=== PATIENT | female | born 1990 | race African-American/Black ===

== ENCOUNTER 2016-12-06 04:51 | Emergency (ER) | payer OTHER ==
[2016-12-06 05:41] LABS: BASO % 0.6 % (0.0-1.0); EOS # 0.2 K/mm3 (0.0-0.50); EOS % 2.2 % (0.0-3.0); LARGE UNSTAINED CELL # 0.2 K/mm3 (0.0-0.4); LARGE UNSTAINED CELL % 2.1 % (0.0-4.0); LYMPH # 2.2 K/mm3 (1.5-6.5); MEAN CORPUSCULAR HEMOGLOBIN 28.6 pg (27.0-33.0); MEAN CORPUSCULAR HGB CONC 33.5 g/dl (32.0-36.5); MEAN CORPUSCULAR VOLUME 85.5 fl (80.0-96.0); MONO # 0.3 K/mm3 (0.0-0.8); MONO % 4.1 % (0.0-5.0); NEUTROPHILS # 5.4 K/mm3 (1.8-7.7); PLATELET COUNT, AUTOMATED 285 k/mm3 (150-450); RED CELL DISTRIBUTION WIDTH 12.6 % (11.5-14.5); WHITE BLOOD COUNT 8.3 K/mm3 (4.0-10.0)
[2016-12-06 05:58] LABS: CONTROL LINE HCG INT CTR LINE PRESENT
[2016-12-06 06:09] LABS: ALBUMIN/GLOBULIN RATIO 1.11 (1.00-1.93); ALKALINE PHOSPHATASE 56 U/L (45-117); ALT/SGPT 19 U/L (12-78); ANION GAP 9 MEQ/L (8-16); AST/SGOT 16 U/L (15-37); BILIRUBIN,DIRECT < 0.1 MG/DL (0.0-0.2); BILIRUBIN,TOTAL 0.2 MG/DL (0.2-1.0); BLOOD UREA NITROGEN 9 MG/DL (7-18); CALCIUM LEVEL 8.8 MG/DL (8.5-10.1); CARBON DIOXIDE LEVEL 22 MEQ/L (21-32); CHLORIDE LEVEL 107 MEQ/L (98-107); CREATININE FOR GFR 0.73 MG/DL (0.55-1.02); GLOMERULAR FILTRATION RATE > 60.0 (>60); GLUCOSE, FASTING 89 MG/DL (70-105); POTASSIUM SERUM 3.8 MEQ/L (3.5-5.1); SODIUM LEVEL 138 MEQ/L (136-145); TOTAL PROTEIN 7.6 GM/DL (6.4-8.2)
[2016-12-06] MEDS ORDERED: MORPHINE 2 MG/ML 1ML SYRINGE As Ordered ONE (06:29)
[2016-12-06] MEDS ORDERED: ONDANSETRON 4MG/2ML VIAL (J2405) As Ordered ONE (06:29)
[2016-12-06 06:39] LABS: HCG, SERUM QUANTITATIVE 5296 MIU/ML
--- NOTE | 2016-12-06 08:19 | REP ---
Clinical: Left lower quadrant pain for dating and viability. Technique: Transabdominal and transvaginal first trimester obstetrical technique with color Doppler evaluation of the maternal ovaries and fetus. Findings: Heterogeneous anteverted uterus measures 9.9 x 6.7 x 6.7 cm. Decidual reaction is appreciated and a gestational sac is identified with yolk sac, but no pole. Mean sac diameter of 9.4 mm corresponds to 5 weeks 5 days gestational age. Maternal ovaries are normal in appearance. Left ovary measures 3.7 x 2.9 x 1.8 cm. Right ovary measures 5.8 x 3.2 x 4.3 cm and includes complex hemorrhagic corpus luteal cyst measuring 2.6 cm maximal diameter. Small amount of pelvic free fluid noted. Impression: Gestational sac with yolk sac, but no pole. Differential diagnosis includes normal early , missed , and less likely ectopic . Correlation with HCG levels recommended. Signed by Nikhil Spann MD 12/06/2016 08:11 A
--- NOTE | 2016-12-06 09:14 | EDDOCDS ---
Physician Documentation [facility] Name: Heidi Harrison Age: 26 yrs Sex: Female : 1990 Arrival Date: 12/06/2016 Time: 04:51 Bed 7 Private MD: Disposition: 12/06 08:58 Critical Care: Critical care not applicable. pc Disposition: 12/06/16 09:01 Discharged to Home/Self Care. Impression: Generalized abdominal pain, state - 5 weeks, 5 days by US, with gestational sac seen without pole as expected for dates. - Condition is Stable. - Discharge Instructions: First Trimester of , Abdominal Pain, Women. - Medication Reconciliation, Local Pharmacy Hours, Work Release Form - 1 day form. - Follow up: Daniel Walsh, OB; When: Per Dr. Bearden, keep your appointment as previously scheduled. ; Reason: Recheck today's complaints, Continuance of care. - Problem is new. - Symptoms have improved. - Notes: Use Tylenol for pain relief Historical: - Allergies: Imitrex (Hives); Maxalt (Hives); SULFA (SULFONAMIDES) (Unknown); - Home Meds: 1. Tylenol 500 mg Oral tab 2 tabs every 4 hours prn (Last dose: 12/06/2016 00:00) 2. Benadryl 25 mg Oral cap 2 caps as needed 3. melatonin 3 mg Oral tab nightly - PMHx: chronic abdominal pain; Migraine Headaches; Irritable bowel syndrome; - PSHx: Tonsillectomy; - Social history: Smoking status: Patient states former smoker of tobacco. No barriers to communication noted, The patient speaks fluent Serbian. - Family history: No immediate family members are acutely ill. - : The pt / caregiver states he / she is not on anticoagulants. Home medication list is obtained from the patient. - Exposure Risk Screening:: None identified. [employer]ERSON [employer]IES: 04:58 LMP 10/19/2016, Verified, EDC 07/26/2017, Gestational age from LMP: 6 weeks 6 mlc days Vital Signs: 04:58 BP 131 / 84; Pulse 79; Resp 20; Temp 96.0; Pulse Ox 100% ; Weight 88.45 kg / 195 lbs; mlc Height 5 ft. 2 in. (157.48 cm); Pain 5/10; 07:53 BP 122 / 74 (auto/); ead 07:54 Pulse 82 MON; Pulse Ox 99% ; ead 09:01 BP 108 / 56 (auto/); ead 09:01 Pulse 60 MON; Resp 16; Pulse Ox 97% on R/A; ead 09:08 Resp 16; Temp 98.2; Pain 6/10; cmb 04:58 Body Mass Index 35.67 (88.45 kg, 157.48 cm) mlc MDM: 05:13 Undress patient appropriately for examination ordered. fg 05:13 IV Saline Lock ordered. fg 05:13 Set up pelvic ordered. fg 05:13 Urinalysis Ordered. EDMS 05:13 Urine Culture Ordered. EDMS 05:13 CBC with Diff Ordered. EDMS 05:13 Basic Metabolic Profile Ordered. EDMS 05:13 Lipase Ordered. EDMS 05:13 Liver Profile Ordered. EDMS 05:13 HCG,Serum Qualitative Ordered. EDMS 05:13 Wet Prep Ordered. EDMS 05:13 GC & Chlamydia Amplification Ordered. EDMS 05:14 NOTHING BY MOUTH+DIET ordered. EDMS 05:40 Financial registration complete. pm4 05:40 [facility] Payment Agreement was scanned into [employer] and attached to record. pm4 06:13 HCG, SERUM QUANTITATIVE Ordered. EDMS 06:15 morphine 2 mg IVP once ordered. fg 06:15 Ondansetron 4 mg IVP once ordered. fg 07:01 US 1st trimester Ordered. EDMS 07:05 Urinalysis Reviewed. pc 07:05 HCG,Serum Qualitative Reviewed. pc 07:05 CBC with Diff Reviewed. pc 07:05 Basic Metabolic Profile Reviewed. pc 07:05 Lipase Reviewed. pc 07:05 Liver Profile Reviewed. pc 07:05 Wet Prep Reviewed. pc 07:05 HCG, SERUM QUANTITATIVE Reviewed. pc 07:34 TRANSVAGINAL US Ordered. EDMS 07:34 DUPLEX SCAN LIMITED (DOPPLER) Ordered. EDMS 08:27 GC & Chlamydia Amplification Reviewed. pc 08:29 Test interpretation: Ultrasound - interpreted by Radiologist, OB 1st trimester pc Gestational sac without pole Gestational age (weeks.days) 5.5. 08:58 The patient has been re-examined and re-evaluated. The clinical presentation did not pc require any ED treatment or interventions. Physician consultation: Dr. Karen Bearden MD was contacted at 08:59, regarding patient's condition, and advises the medications/treatment as provided. and agrees with the treatment provided and advises the discharge plans as outlined. Disposition: The historical points, examination findings, and any diagnostic results supporting the provided diagnosis, were discussed with the patient or legal guardian. The need for outpatient follow up with the provider listed on their discharge instructions was discussed. They were encouraged to return to [facility], or the nearest ED, if symptoms worsen/persist, or for any other questions/concerns. Administered Medications: 06:37 Drug: morphine 2 mg [morphine 2 mg/mL intravenous cartridge (1 mL)] Route: IVP; Site: ko2 left antecubital; 06:37 Drug: Ondansetron 4 mg [ondansetron HCl 2 mg/mL intravenous solution (2 mL)] Route: ko2 IVP; Site: left antecubital; Signatures: Dispatcher [employer] EDMS Carlos Gardner MD MD pc Dunaway, Emily, RN RN ead Booth, Mandy, RN RN mlc Gill, Frances, MD MD fg Montondo, Paul, Reg Reg pm4 Izabela Lawrence RN ko2 The chart was reviewed and I authenticate all verbal orders and agree with the evaluation and treatment provided.Corrections: (The following items were deleted from the chart) 06:13 06:05 HCG, SERUM QUANTITATIVE+LAB ordered. EDTN EDTN Attachments: 05:40 [facility] Payment Agreement pm4 MTDD
--- NOTE | 2016-12-06 09:14 | EDDOCDS ---
Nurse's Notes [facility] Name: Heidi Harrison Age: 26 yrs Sex: Female : 1990 Arrival Date: 12/06/2016 Time: 04:51 Bed 7 Private MD: Diagnosis: Generalized abdominal pain; state-5 weeks, 5 days by US, with gestational sac seen without pole as expected for dates Presentation: 12/06 04:55 Presenting complaint: Patient states: pt reports left flank pain starting at approx mlc midnight. pt c/o nausea. Risk factors: the patient reports no vaginal bleeding. Adult Sepsis Screening: The patient does not have new or worsening altered mentation. Patient's respiratory rate is less than 22. Systolic blood pressure is greater than 100. Patient has a qSOFA score of 0- Negative Sepsis Screen. Suicide/Homicide risk assessment- the patient denies having any suicidal and/or homicidal ideations and does not present with any other emotional, behavioral or mental health complaints. Status: The patient is a dependent. Transition of care: patient was not received from another setting of care. 04:55 Acuity: CHARITY Level 3 mlc 04:55 Method Of Arrival: Walkin/Carried/Asstd mlc Triage Assessment: 04:58 General: Appears in no apparent distress, comfortable, Behavior is cooperative. Pain: mlc Location: left flank Pain currently is 5 out of 10 on a pain scale. HIV screening NA for this visit Offered previously. The patient is triaged at the bedside. See Assessment in Nurses Notes section of ED record. The patient is triaged at the bedside. See Assessment in Nurses Notes section of ED record. Neurological: Level of Consciousness is awake, alert, Oriented to person, place, time. Respiratory: Airway is patent Respiratory effort is even, unlabored, Respiratory pattern is regular. GI: Reports nausea. Derm: Skin is normal. 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 Tylenol 500 mg Oral tab 2 tabs every 4 hours prn (Last dose: 12/06/2016 00:00) 2. Benadryl 25 mg Oral cap 2 caps as needed 3. melatonin 3 mg Oral tab nightly - PMHx: chronic abdominal pain; Migraine Headaches; Irritable bowel syndrome; - PSHx: Tonsillectomy; - Social history: Smoking status: Patient states former smoker of tobacco. No barriers to communication noted, The patient speaks fluent Irish. - Family history: No immediate family members are acutely ill. - : The pt / caregiver states he / she is not on anticoagulants. Home medication list is obtained from the patient. - Exposure Risk Screening:: None identified. Screenin:02 Screening information is obtained from the patient. Fall risk: No risks identified. mlc Assistance ADL's: requires no assistance with activities of daily living. Abuse/DV Screen: The patient / caregiver reports he/she is: not in a situation that causes fear, pain or injury. Nutritional screening: No deficits noted. Advance Directives: Currently, there is no health care proxy. home support is adequate. Assessment: 05:35 General: Appears in no apparent distress, Behavior is appropriate for age, cooperative. ko2 Pain: Location: left flank Pain. Neurological: Level of Consciousness is awake, alert, Oriented to person, place, time. Respiratory: Airway is patent Respiratory effort is even, unlabored. GI: Abdomen is non- distended Bowel sounds present X 4 quads. Abd is soft. Derm: Skin is normal. 07:30 General: Appears in no apparent distress, comfortable, Behavior is appropriate for age, ead cooperative. Neurological: No deficits noted. Respiratory: Airway is patent Respiratory effort is even, unlabored. GI: Reports lower abdominal pain, Denies nausea, vomiting. Derm: Skin is pink, warm & dry. 09:00 General: Appears in no apparent distress, comfortable, Behavior is appropriate for age, ead cooperative. Neurological: No deficits noted. Respiratory: Airway is patent Respiratory effort is even, unlabored. Derm: Skin is dry, Skin is normal. Vital Signs: 04:58 BP 131 / 84; Pulse 79; Resp 20; Temp 96.0; Pulse Ox 100% ; Weight 88.45 kg; Height 5 mlc ft. 2 in. (157.48 cm); Pain 5/10; 07:53 BP 122 / 74 (auto/); ead 07:54 Pulse 82 MON; Pulse Ox 99% ; ead 09:01 BP 108 / 56 (auto/); ead 09:01 Pulse 60 MON; Resp 16; Pulse Ox 97% on R/A; ead 09:08 Resp 16; Temp 98.2; Pain 6/10; cmb 04:58 Body Mass Index 35.67 (88.45 kg, 157.48 cm) [facility] Vitals: 04:58 Log In Time: December 06, 2016 at 04:53. [facility] ED Course: 04:53 Patient visited by Cassie Bryson, Reg. hs2 04:53 Patient moved to Waiting hs2 04:56 Triage Initiated mlc 05:02 Patient visited by Brandy Luther,ROSAURA. mlc 05:04 Izabela LawrenceRN is Primary Nurse. mlc 05:04 Patient moved to 7 mlc 05:11 Kelly Arthur MD is Attending Physician. fg 05:11 Patient visited by Kelly Arthur MD. fg 05:35 Inserted saline lock: 20 gauge in left antecubital area and blood collected. The ko2 patient tolerated the procedure well. 05:36 Basic Metabolic Profile Sent. ko2 05:36 Lipase Sent. ko2 05:36 Liver Profile Sent. ko2 05:36 CBC with Diff Sent. ko2 05:36 HCG,Serum Qualitative Sent. ko2 05:36 Urine Culture Sent. ko2 05:36 Urinalysis Sent. ko2 05:40 [facility] [place] Agreement was scanned into [employer] and attached to record. pm4 06:01 Patient visited by Izabela Lawrence RN. ko2 06:02 Assist provider with pelvic exam: Set up pelvic tray. Specimens sent to lab. Performed ko2 by Kelly Arthur MD Patient tolerated well. 06:03 The patient / caregiver is instructed regarding the plan of care and ED course. ko2 06:38 Patient visited by Izabela Lawrence RN. ko2 07:05 Attending Physician role handed off by Kelly Arthur MD pc 07:05 Carlos Gardner MD is Attending Physician. pc 07:21 Patient moved to Ultrasound eg2 07:54 Anahi Davidson,RN is Primary Nurse. ead 07:59 Patient visited by Anahi Davidson,ROSAURA. ead 07:59 Patient moved to 7 eg2 09:00 Patient visited by Anahi Davidson,ROSAURA. ead 09:01 [place], OB is Referral Physician. pc 09:01 US 1st trimester Returned. EDMS 09:08 Patient visited by Rosalee Aldana. cmb 09:12 Discontinued lock intact, bleeding controlled, pressure dressing applied, No ead redness/swelling at site. Administered Medications: 06:37 Drug: morphine 2 mg [morphine 2 mg/mL intravenous cartridge (1 mL)] Route: IVP; Site: ko2 left antecubital; 06:37 Drug: Ondansetron 4 mg [ondansetron HCl 2 mg/mL intravenous solution (2 mL)] Route: ko2 IVP; Site: left antecubital; Order Results: Lab Order: Urinalysis; SPEC'M 12/06/16 05:32 Test: APPEARANCE, URINE; Value: HAZY; Range: CLEAR; Status: F Test: COLOR, URINE; Value: STRAW; Range: YELLOW; Status: F Test: PH,URINE; Value: 6.0; Range: 5.0-9.0; Units: UNITS; Status: F Test: SPECIFIC GRAVITY URINE AUTO; Value: 1.003; Range: 1.002-1.035; Status: F Test: PROTEIN, URINE AUTO; Value: NEGATIVE; Range: NEGATIVE; Units: mg/dL; Status: F Test: GLUCOSE, URINE (UA) AUTO; Value: NEGATIVE; Range: NEGATIVE; Units: mg/dL; Status: F Test: KETONE, URINE AUTO; Value: NEGATIVE; Range: NEGATIVE; Units: mg/dL; Status: F Test: UROBILINOGEN, URINE AUTO; Value: 0.2; Range: 0.0-2.0; Units: mg/dL; Status: F Test: BILIRUBIN, URINE AUTO; Value: NEGATIVE; Range: NEGATIVE; Status: F Test: NITRITE, URINE AUTO; Value: NEGATIVE; Range: NEGATIVE; Status: F Test: LEUKOCYTE ESTERASE, URINE AUTO; Value: NEGATIVE; Range: NEGATIVE; Status: F Test: BLOOD, URINE BLOOD; Value: NEGATIVE; Range: NEGATIVE; Status: F Test: WBC, URINE AUTO; Value: 1; Range: 0-3; Units: /HPF; Status: F Test: RBC, URINE AUTO; Value: 2; Range: 0-3; Units: /HPF; Status: F Test: BACTERIA, URINE AUTO; Value: 2+; Range: NEGATIVE; Abnormal: Above high normal; Status: F Test: SQUAMOUS EPITHELIAL CELL UR AU; Value: 2; Range: 0-6; Units: /HPF; Status: F Test: HYALINE CAST, URINE AUTO; Value: 0; Range: 0-1; Units: /LPF; Status: F Lab Order: CBC with Diff; SPEC'M 12/06/16 05:32 Test: WHITE BLOOD COUNT; Value: 8.3; Range: 4.0-10.0; Units: K/mm3; Status: F Test: RED BLOOD COUNT; Value: 4.39; Range: 4.00-5.40; Units: M/mm3; Status: F Test: HEMOGLOBIN; Value: 12.6; Range: 12.0-16.0; Units: g/dl; Status: F Test: HEMATOCRIT; Value: 37.5; Range: 36.0-47.0; Units: %; Status: F Test: MEAN CORPUSCULAR VOLUME; Value: 85.5; Range: 80.0-96.0; Units: fl; Status: F Test: MEAN CORPUSCULAR HEMOGLOBIN; Value: 28.6; Range: 27.0-33.0; Units: pg; Status: F Test: MEAN CORPUSCULAR HGB CONC; Value: 33.5; Range: 32.0-36.5; Units: g/dl; Status: F Test: RED CELL DISTRIBUTION WIDTH; Value: 12.6; Range: 11.5-14.5; Units: %; Status: F Test: PLATELET COUNT, AUTOMATED; Value: 285; Range: 150-450; Units: k/mm3; Status: F Test: NEUTROPHILS %; Value: 65.0; Range: 36.0-66.0; Units: %; Status: F Test: LYMPH %; Value: 26.0; Range: 24.0-44.0; Units: %; Status: F Test: MONO %; Value: 4.1; Range: 0.0-5.0; Units: %; Status: F Test: EOS %; Value: 2.2; Range: 0.0-3.0; Units: %; Status: F Test: BASO %; Value: 0.6; Range: 0.0-1.0; Units: %; Status: F Test: LARGE UNSTAINED CELL %; Value: 2.1; Range: 0.0-4.0; Units: %; Status: F Test: NEUTROPHILS #; Value: 5.4; Range: 1.8-7.7; Units: K/mm3; Status: F Test: LYMPH #; Value: 2.2; Range: 1.5-6.5; Units: K/mm3; Status: F Test: MONO #; Value: 0.3; Range: 0.0-0.8; Units: K/mm3; Status: F Test: EOS #; Value: 0.2; Range: 0.0-0.50; Units: K/mm3; Status: F Test: BASO #; Value: 0.0; Range: 0.0-0.2; Units: K/mm3; Status: F Test: LARGE UNSTAINED CELL #; Value: 0.2; Range: 0.0-0.4; Units: K/mm3; Status: F Lab Order: Basic Metabolic Profile; [facility]' 12/06/16 05:32 Test: GLUCOSE, FASTING; Value: 89; Range: 70-105; Units: MG/DL; Status: F Test: BLOOD UREA NITROGEN; Value: 9; Range: 7-18; Units: MG/DL; Status: F Test: CREATININE FOR GFR; Value: 0.73; Range: 0.55-1.02; Units: MG/DL; Status: F Test: SODIUM LEVEL; Range: 136-145; Units: MEQ/L; Status: I Test: POTASSIUM SERUM; Range: 3.5-5.1; Units: MEQ/L; Status: I Test: CHLORIDE LEVEL; Range: 98-107; Units: MEQ/L; Status: I Test: CARBON DIOXIDE LEVEL; Range: 21-32; Units: MEQ/L; Status: I Test: ANION GAP; Range: 8-16; Units: MEQ/L; Status: I Test: CALCIUM LEVEL; Range: 8.5-10.1; Units: MG/DL; Status: I Test: GLOMERULAR FILTRATION RATE; Value: > 60.0; Range: >60; Status: F Test: SODIUM LEVEL; Value: 138; Range: 136-145; Units: MEQ/L; Status: F Test: POTASSIUM SERUM; Value: 3.8; Range: 3.5-5.1; Units: MEQ/L; Status: F Test: CHLORIDE LEVEL; Value: 107; Range: 98-107; Units: MEQ/L; Status: F Test: CARBON DIOXIDE LEVEL; Value: 22; Range: 21-32; Units: MEQ/L; Status: F Test: ANION GAP; Value: 9; Range: 8-16; Units: MEQ/L; Status: F Test: CALCIUM LEVEL; Value: 8.8; Range: 8.5-10.1; Units: MG/DL; Status: F Test Note: ; Units are mL/min/1.73 m2 Chronic Kidney Disease Staging per NKF: Stage I & II GFR >=60 Normal to Mildly Decreased Stage III GFR 30-59 Moderately Decreased Stage IV GFR 15-29 Severely Decreased Stage V GFR <15 Very Little GFR Left ESRD GFR <15 on RATE ANALYST Lab Order: Lipase; 12/06/16 05:32 Test: LIPASE; Value: 142; Range: 73-393; Units: U/L; Status: F Lab Order: Liver Profile; 12/06/16 05:32 Test: AST/SGOT; Value: 16; Range: 15-37; Units: U/L; Status: F Test: ALT/SGPT; Value: 19; Range: 12-78; Units: U/L; Status: F Test: ALKALINE PHOSPHATASE; Value: 56; Range: 45-117; Units: U/L; Status: F Test: BILIRUBIN,TOTAL; Value: 0.2; Range: 0.2-1.0; Units: MG/DL; Status: F Test: BILIRUBIN,DIRECT; Value: < 0.1; Range: 0.0-0.2; Units: MG/DL; Status: F Test: TOTAL PROTEIN; Value: 7.6; Range: 6.4-8.2; Units: GM/DL; Status: F Test: ALBUMIN; Value: 4.0; Range: 3.2-5.2; Units: GM/DL; Status: F Test: ALBUMIN/GLOBULIN RATIO; Value: 1.11; Range: 1.00-1.93; Status: F Lab Order: HCG,Serum Qualitative; 12/06/16 05:32 Test: HCG, SERUM QUALITATIVE; Value: POSITIVE; Range: NEGATIVE; Abnormal: Abnormal; Status: F Lab Order: Wet Prep; 12/06/17 05:59 Test: WET PREP; Value: WET PREP RESULT; Status: F Test: WET PREP; Value: FEW EPITHELIAL CELLS PRESENT; Status: F Test: WET PREP; Value: FEW WBC; Status: F Test: WET PREP; Value: FEW RBC; Status: F Test: WET PREP; Value: MANY LONG RODS PRESENT; Status: F Test: WET PREP; Value: FEW SHORT RODS PRESENT; Status: F Lab Order: GC & Chlamydia Amplification; SPEC'M 12/06/16 05:59 Test: CHLAMYDIA DNA AMPLIFICATION; Value: NEGATIVE; Range: NEGATIVE; Status: F Test: GC DNA AMPLIFICATION; Value: NEGATIVE; Range: NEGATIVE; Status: F Lab Order: HCG, SERUM QUANTITATIVE; SPEC'M 12/06/16 05:32 Test: HCG, SERUM QUANTITATIVE; Value: 5296; Units: MIU/ML; Status: F Test Note: ; GESTATIONAL AGE APPROXIMATE HCG RANGE (MIU/ML) 0.2-1 WEEK 5-50 1-2 WEEKS 50-500 2-3 WEEKS 100-5,000 3-4 WEEKS 500-10,000 4-5 WEEKS 1,000-50,000 5-6 WEEKS 10,000-100,000 6-8 WEEKS 15,000-200,000 2-3 MONTHS 10,000-100,000 NON FEMALES LESS THAN 3.0 Patient samples may contain human heterophilic antibodies that could react with immunoassays to give falsely elevated or depressed results. This assay has been designed to minimize interference from heterophilic antibodies. Elevated hCG levels have also been associated with trophoblastic disease and nontrophoblastic neoplasms. The possibility of having these diseases should be considered before a diagnosis of is made. This test is not intended for use as a surrogate marker for aiding in the diagnosis or monitoring the treatment of cancer patients. [employer] methodology. Radiology Order: US 1st trimester Test: US 1st trimester REASON FOR EXAMINATION: Abdomen Pain; Clinical: Left lower quadrant pain for dating and viability.; ; Technique: Transabdominal and transvaginal first trimester obstetrical technique; with color Doppler evaluation of the maternal ovaries and fetus.; ; Findings:; Heterogeneous anteverted uterus measures 9.9 x 6.7 x 6.7 cm. Decidual reaction; is appreciated and a gestational sac is identified with yolk sac, but no ; pole. Mean sac diameter of 9.4 mm corresponds to 5 weeks 5 days gestational; age.; ; Maternal ovaries are normal in appearance. Left ovary measures 3.7 x 2.9 x 1.8; cm. Right ovary measures 5.8 x 3.2 x 4.3 cm and includes complex hemorrhagic; corpus luteal cyst measuring 2.6 cm maximal diameter. Small amount of pelvic; free fluid noted.; ; Impression:; Gestational sac with yolk sac, but no pole. Differential diagnosis; includes normal early , missed , and less likely ectopic; . Correlation with HCG levels recommended.; ; ; Signed by; Nikhil Spann MD 12/06/2016 08:11 A; Outcome: 09:01 Discharge ordered by Provider. 09:12 Discharge Assessment: Patient awake and alert. obeys commands, Oriented to person, ead place and time. patient administered narcotics - yes. Pt provided with safe discharge. The following High Risk Discharge criteria are identified: None. Discharged to home ambulatory, with significant other. Condition: unchanged. Discharge instructions given to patient, significant other, Instructed on discharge instructions, follow up and referral plans. Demonstrated understanding of instructions, Pt was receptive of discharge instructions/ teaching. Ultrasound Study completed. Property sent home with patient. 09:13 Patient left the ED. ead Signatures: Dispatcher [employer] EDCarlos Hartman MD MD pc Gunn, Erin eg2 Rosalee Aldana Emily, RN RN ead Booth, Mandy, RN RN mlc Ogden, Kari, RN RN ko2 Gill, Frances, MD MD fg Stanton, Hillary, Reg Reg hs2 Alireza Shaffer, Reg Reg pm4 Corrections: (The following items were deleted from the chart) 06:13 06:10 HCG, SERUM QUANTITATIVE+LAB sent. paul MCGREGOR MTDD
--- NOTE | 2016-12-08 10:14 | EDDOCDS ---
Nurse's Notes [facility] Name: Heidi Harrison Age: 26 yrs Sex: Female : 1990 Arrival Date: 12/06/2016 Time: 04:51 Bed 7 Private MD: Diagnosis: Generalized abdominal pain; state-5 weeks, 5 days by US, with gestational sac seen without pole as expected for dates Presentation: 12/06 04:55 Presenting complaint: Patient states: pt reports left flank pain starting at approx mlc midnight. pt c/o nausea. Risk factors: the patient reports no vaginal bleeding. Adult Sepsis Screening: The patient does not have new or worsening altered mentation. Patient's respiratory rate is less than 22. Systolic blood pressure is greater than 100. Patient has a qSOFA score of 0- Negative Sepsis Screen. Suicide/Homicide risk assessment- the patient denies having any suicidal and/or homicidal ideations and does not present with any other emotional, behavioral or mental health complaints. Status: The patient is a dependent. Transition of care: patient was not received from another setting of care. 04:55 Acuity: CHARITY Level 3 mlc 04:55 Method Of Arrival: Walkin/Carried/Asstd mlc Triage Assessment: 04:58 General: Appears in no apparent distress, comfortable, Behavior is cooperative. Pain: mlc Location: left flank Pain currently is 5 out of 10 on a pain scale. HIV screening NA for this visit Offered previously. The patient is triaged at the bedside. See Assessment in Nurses Notes section of ED record. The patient is triaged at the bedside. See Assessment in Nurses Notes section of ED record. Neurological: Level of Consciousness is awake, alert, Oriented to person, place, time. Respiratory: Airway is patent Respiratory effort is even, unlabored, Respiratory pattern is regular. GI: Reports nausea. Derm: Skin is normal. [employer]: 04:58 LMP 10/19/2016, Verified, EDC 07/26/2017, Gestational age from LMP: 6 weeks 6 mlc days Historical: - Allergies: Imitrex (Hives); Maxalt (Hives); SULFA (SULFONAMIDES) (Unknown); - Home Meds: 1. Tylenol 500 mg Oral tab 2 tabs every 4 hours prn (Last dose: 12/06/2016 00:00) 2. Benadryl 25 mg Oral cap 2 caps as needed 3. melatonin 3 mg Oral tab nightly - PMHx: chronic abdominal pain; Migraine Headaches; Irritable bowel syndrome; - PSHx: Tonsillectomy; - Social history: Smoking status: Patient states former smoker of tobacco. No barriers to communication noted, The patient speaks fluent Yemeni. - Family history: No immediate family members are acutely ill. - : The pt / caregiver states he / she is not on anticoagulants. Home medication list is obtained from the patient. - Exposure Risk Screening:: None identified. Screenin:02 Screening information is obtained from the patient. Fall risk: No risks identified. mlc Assistance ADL's: requires no assistance with activities of daily living. Abuse/DV Screen: The patient / caregiver reports he/she is: not in a situation that causes fear, pain or injury. Nutritional screening: No deficits noted. Advance Directives: Currently, there is no health care proxy. home support is adequate. Assessment: 05:35 General: Appears in no apparent distress, Behavior is appropriate for age, cooperative. ko2 Pain: Location: left flank Pain. Neurological: Level of Consciousness is awake, alert, Oriented to person, place, time. Respiratory: Airway is patent Respiratory effort is even, unlabored. GI: Abdomen is non- distended Bowel sounds present X 4 quads. Abd is soft. Derm: Skin is normal. 07:30 General: Appears in no apparent distress, comfortable, Behavior is appropriate for age, ead cooperative. Neurological: No deficits noted. Respiratory: Airway is patent Respiratory effort is even, unlabored. GI: Reports lower abdominal pain, Denies nausea, vomiting. Derm: Skin is pink, warm & dry. 09:00 General: Appears in no apparent distress, comfortable, Behavior is appropriate for age, ead cooperative. Neurological: No deficits noted. Respiratory: Airway is patent Respiratory effort is even, unlabored. Derm: Skin is dry, Skin is normal. Vital Signs: 04:58 BP 131 / 84; Pulse 79; Resp 20; Temp 96.0; Pulse Ox 100% ; Weight 88.45 kg; Height 5 mlc ft. 2 in. (157.48 cm); Pain 5/10; 07:53 BP 122 / 74 (auto/); ead 07:54 Pulse 82 MON; Pulse Ox 99% ; ead 09:01 BP 108 / 56 (auto/); ead 09:01 Pulse 60 MON; Resp 16; Pulse Ox 97% on R/A; ead 09:08 Resp 16; Temp 98.2; Pain 6/10; cmb 04:58 Body Mass Index 35.67 (88.45 kg, 157.48 cm) [place] Vitals: 04:58 Log In Time: December 06, 2016 at 04:53. [place] ED Course: 04:53 Patient visited by Cassie Bryson, Reg. hs2 04:53 Patient moved to Waiting hs2 04:56 Triage Initiated mlc 05:02 Patient visited by Brandy Luther,ROSAURA. mlc 05:04 Izabela LawrenceRN is Primary Nurse. mlc 05:04 Patient moved to 7 mlc 05:11 Kelly Arthur MD is Attending Physician. fg 05:11 Patient visited by Klely Arthur MD. fg 05:35 Inserted saline lock: 20 gauge in left antecubital area and blood collected. The ko2 patient tolerated the procedure well. 05:36 Basic Metabolic Profile Sent. ko2 05:36 Lipase Sent. ko2 05:36 Liver Profile Sent. ko2 05:36 CBC with Diff Sent. ko2 05:36 HCG,Serum Qualitative Sent. ko2 05:36 Urine Culture Sent. ko2 05:36 Urinalysis Sent. ko2 05:40 [facility] [place] [facility] Payment Agreement was scanned into [employer] and attached to record. pm4 06:01 Patient visited by Izabela Lawrence RN. ko2 06:02 Assist provider with pelvic exam: Set up pelvic tray. Specimens sent to lab. Performed ko2 by Kelly Arthur MD Patient tolerated well. 06:03 The patient / caregiver is instructed regarding the plan of care and ED course. ko2 06:38 Patient visited by Izabela Lawrence RN. ko2 07:05 Attending Physician role handed off by Kelly Arthur MD pc 07:05 Carlos Gardner MD is Attending Physician. pc 07:21 Patient moved to Ultrasound eg2 07:54 Anahi Davidson,RN is Primary Nurse. ead 07:59 Patient visited by Anahi Davidson,ROSAURA. ead 07:59 Patient moved to 7 eg2 09:00 Patient visited by Anahi Davidson,ROSAURA. ead 09:01 [place], OB is Referral Physician. pc 09:01 US 1st trimester Returned. EDMS 09:08 Patient visited by Rosalee Aldana. cmb 09:12 Discontinued lock intact, bleeding controlled, pressure dressing applied, No ead redness/swelling at site. 15:27 T-Sheet-- Draft Copy was scanned into [employer] and attached to record. gb Administered Medications: 06:37 Drug: morphine 2 mg [morphine 2 mg/mL intravenous cartridge (1 mL)] Route: IVP; Site: ko2 left antecubital; 06:37 Drug: Ondansetron 4 mg [ondansetron HCl 2 mg/mL intravenous solution (2 mL)] Route: ko2 IVP; Site: left antecubital; Order Results: Lab Order: Urinalysis; SPEC'M 12/06/16 05:32 Test: APPEARANCE, URINE; Value: HAZY; Range: CLEAR; Status: F Test: COLOR, URINE; Value: STRAW; Range: YELLOW; Status: F Test: PH,URINE; Value: 6.0; Range: 5.0-9.0; Units: UNITS; Status: F Test: SPECIFIC GRAVITY URINE AUTO; Value: 1.003; Range: 1.002-1.035; Status: F Test: PROTEIN, URINE AUTO; Value: NEGATIVE; Range: NEGATIVE; Units: mg/dL; Status: F Test: GLUCOSE, URINE (UA) AUTO; Value: NEGATIVE; Range: NEGATIVE; Units: mg/dL; Status: F Test: KETONE, URINE AUTO; Value: NEGATIVE; Range: NEGATIVE; Units: mg/dL; Status: F Test: UROBILINOGEN, URINE AUTO; Value: 0.2; Range: 0.0-2.0; Units: mg/dL; Status: F Test: BILIRUBIN, URINE AUTO; Value: NEGATIVE; Range: NEGATIVE; Status: F Test: NITRITE, URINE AUTO; Value: NEGATIVE; Range: NEGATIVE; Status: F Test: LEUKOCYTE ESTERASE, URINE AUTO; Value: NEGATIVE; Range: NEGATIVE; Status: F Test: BLOOD, URINE BLOOD; Value: NEGATIVE; Range: NEGATIVE; Status: F Test: WBC, URINE AUTO; Value: 1; Range: 0-3; Units: /HPF; Status: F Test: RBC, URINE AUTO; Value: 2; Range: 0-3; Units: /HPF; Status: F Test: BACTERIA, URINE AUTO; Value: 2+; Range: NEGATIVE; Abnormal: Above high normal; Status: F Test: SQUAMOUS EPITHELIAL CELL UR AU; Value: 2; Range: 0-6; Units: /HPF; Status: F Test: HYALINE CAST, URINE AUTO; Value: 0; Range: 0-1; Units: /LPF; Status: F Lab Order: Urine Culture; SPEC'M 12/06/16 05:32 Test: URINE CULTURE; Value: <EXTERNAL COMMENT eCWMed> FULL REPORT IN LAB NOTES (eCW and Medent).; Status: F Test: URINE CULTURE; Value: URINE CULTURE RESULT NO GROWTH; Status: F Lab Order: CBC with Diff; SPEC'M 12/06/16 05:32 Test: WHITE BLOOD COUNT; Value: 8.3; Range: 4.0-10.0; Units: K/mm3; Status: F Test: RED BLOOD COUNT; Value: 4.39; Range: 4.00-5.40; Units: M/mm3; Status: F Test: HEMOGLOBIN; Value: 12.6; Range: 12.0-16.0; Units: g/dl; Status: F Test: HEMATOCRIT; Value: 37.5; Range: 36.0-47.0; Units: %; Status: F Test: MEAN CORPUSCULAR VOLUME; Value: 85.5; Range: 80.0-96.0; Units: fl; Status: F Test: MEAN CORPUSCULAR HEMOGLOBIN; Value: 28.6; Range: 27.0-33.0; Units: pg; Status: F Test: MEAN CORPUSCULAR HGB CONC; Value: 33.5; Range: 32.0-36.5; Units: g/dl; Status: F Test: RED CELL DISTRIBUTION WIDTH; Value: 12.6; Range: 11.5-14.5; Units: %; Status: F Test: PLATELET COUNT, AUTOMATED; Value: 285; Range: 150-450; Units: k/mm3; Status: F Test: NEUTROPHILS %; Value: 65.0; Range: 36.0-66.0; Units: %; Status: F Test: LYMPH %; Value: 26.0; Range: 24.0-44.0; Units: %; Status: F Test: MONO %; Value: 4.1; Range: 0.0-5.0; Units: %; Status: F Test: EOS %; Value: 2.2; Range: 0.0-3.0; Units: %; Status: F Test: BASO %; Value: 0.6; Range: 0.0-1.0; Units: %; Status: F Test: LARGE UNSTAINED CELL %; Value: 2.1; Range: 0.0-4.0; Units: %; Status: F Test: NEUTROPHILS #; Value: 5.4; Range: 1.8-7.7; Units: K/mm3; Status: F Test: LYMPH #; Value: 2.2; Range: 1.5-6.5; Units: K/mm3; Status: F Test: MONO #; Value: 0.3; Range: 0.0-0.8; Units: K/mm3; Status: F Test: EOS #; Value: 0.2; Range: 0.0-0.50; Units: K/mm3; Status: F Test: BASO #; Value: 0.0; Range: 0.0-0.2; Units: K/mm3; Status: F Test: LARGE UNSTAINED CELL #; Value: 0.2; Range: 0.0-0.4; Units: K/mm3; Status: F Lab Order: Basic Metabolic Profile; [facility] 12/06/16 05:32 Test: GLUCOSE, FASTING; Value: 89; Range: 70-105; Units: MG/DL; Status: F Test: BLOOD UREA NITROGEN; Value: 9; Range: 7-18; Units: MG/DL; Status: F Test: CREATININE FOR GFR; Value: 0.73; Range: 0.55-1.02; Units: MG/DL; Status: F Test: SODIUM LEVEL; Range: 136-145; Units: MEQ/L; Status: I Test: POTASSIUM SERUM; Range: 3.5-5.1; Units: MEQ/L; Status: I Test: CHLORIDE LEVEL; Range: 98-107; Units: MEQ/L; Status: I Test: CARBON DIOXIDE LEVEL; Range: 21-32; Units: MEQ/L; Status: I Test: ANION GAP; Range: 8-16; Units: MEQ/L; Status: I Test: CALCIUM LEVEL; Range: 8.5-10.1; Units: MG/DL; Status: I Test: GLOMERULAR FILTRATION RATE; Value: > 60.0; Range: >60; Status: F Test: SODIUM LEVEL; Value: 138; Range: 136-145; Units: MEQ/L; Status: F Test: POTASSIUM SERUM; Value: 3.8; Range: 3.5-5.1; Units: MEQ/L; Status: F Test: CHLORIDE LEVEL; Value: 107; Range: 98-107; Units: MEQ/L; Status: F Test: CARBON DIOXIDE LEVEL; Value: 22; Range: 21-32; Units: MEQ/L; Status: F Test: ANION GAP; Value: 9; Range: 8-16; Units: MEQ/L; Status: F Test: CALCIUM LEVEL; Value: 8.8; Range: 8.5-10.1; Units: MG/DL; Status: F Test Note: ; Units are mL/min/1.73 m2 Chronic Kidney Disease Staging per NKF: Stage I & II GFR >=60 Normal to Mildly Decreased Stage III GFR 30-59 Moderately Decreased Stage IV GFR 15-29 Severely Decreased Stage V GFR <15 Very Little GFR Left ESRD GFR <15 on TECHNICAL ADMINISTRATIVE ASSISTANT Lab Order: Lipase; SPEC'M 12/06/16 05:32 Test: LIPASE; Value: 142; Range: 73-393; Units: U/L; Status: F Lab Order: Liver Profile; SPEC'M 12/06/16 05:32 Test: AST/SGOT; Value: 16; Range: 15-37; Units: U/L; Status: F Test: ALT/SGPT; Value: 19; Range: 12-78; Units: U/L; Status: F Test: ALKALINE PHOSPHATASE; Value: 56; Range: 45-117; Units: U/L; Status: F Test: BILIRUBIN,TOTAL; Value: 0.2; Range: 0.2-1.0; Units: MG/DL; Status: F Test: BILIRUBIN,DIRECT; Value: < 0.1; Range: 0.0-0.2; Units: MG/DL; Status: F Test: TOTAL PROTEIN; Value: 7.6; Range: 6.4-8.2; Units: GM/DL; Status: F Test: ALBUMIN; Value: 4.0; Range: 3.2-5.2; Units: GM/DL; Status: F Test: ALBUMIN/GLOBULIN RATIO; Value: 1.11; Range: 1.00-1.93; Status: F Lab Order: HCG,Serum Qualitative; [facility] 12/06/16 05:32 Test: HCG, SERUM QUALITATIVE; Value: POSITIVE; Range: NEGATIVE; Abnormal: Abnormal; Status: F Lab Order: Wet Prep; [facility] 12/06/16 05:59 Test: WET PREP; Value: WET PREP RESULT; Status: F Test: WET PREP; Value: FEW EPITHELIAL CELLS PRESENT; Status: F Test: WET PREP; Value: FEW WBC; Status: F Test: WET PREP; Value: FEW RBC; Status: F Test: WET PREP; Value: MANY LONG RODS PRESENT; Status: F Test: WET PREP; Value: FEW SHORT RODS PRESENT; Status: F Lab Order: GC & Chlamydia Amplification; [facility] 12/06/16 05:59 Test: CHLAMYDIA DNA AMPLIFICATION; Value: NEGATIVE; Range: NEGATIVE; Status: F Test: GC DNA AMPLIFICATION; Value: NEGATIVE; Range: NEGATIVE; Status: F Lab Order: HCG, SERUM QUANTITATIVE; [facility] 12/06/16 05:32 Test: HCG, SERUM QUANTITATIVE; Value: 5296; Units: MIU/ML; Status: F Test Note: ; GESTATIONAL AGE APPROXIMATE HCG RANGE (MIU/ML) 0.2-1 WEEK 5-50 1-2 WEEKS 50-500 2-3 WEEKS 100-5,000 3-4 WEEKS 500-10,000 4-5 WEEKS 1,000-50,000 5-6 WEEKS 10,000-100,000 6-8 WEEKS 15,000-200,000 2-3 MONTHS 10,000-100,000 NON FEMALES LESS THAN 3.0 Patient samples may contain human heterophilic antibodies that could react with immunoassays to give falsely elevated or depressed results. This assay has been designed to minimize interference from heterophilic antibodies. Elevated hCG levels have also been associated with trophoblastic disease and nontrophoblastic neoplasms. The possibility of having these diseases should be considered before a diagnosis of is made. This test is not intended for use as a surrogate marker for aiding in the diagnosis or monitoring the treatment of cancer patients. Zite methodology. Radiology Order: US 1st trimester Test: US 1st trimester REASON FOR EXAMINATION: Abdomen Pain; Clinical: Left lower quadrant pain for dating and viability.; ; Technique: Transabdominal and transvaginal first trimester obstetrical technique; with color Doppler evaluation of the maternal ovaries and fetus.; ; Findings:; Heterogeneous anteverted uterus measures 9.9 x 6.7 x 6.7 cm. Decidual reaction; is appreciated and a gestational sac is identified with yolk sac, but no ; pole. Mean sac diameter of 9.4 mm corresponds to 5 weeks 5 days gestational; age.; ; Maternal ovaries are normal in appearance. Left ovary measures 3.7 x 2.9 x 1.8; cm. Right ovary measures 5.8 x 3.2 x 4.3 cm and includes complex hemorrhagic; corpus luteal cyst measuring 2.6 cm maximal diameter. Small amount of pelvic; free fluid noted.; ; Impression:; Gestational sac with yolk sac, but no pole. Differential diagnosis; includes normal early , missed , and less likely ectopic; . Correlation with HCG levels recommended.; ; ; Signed by; Nikhil Spann MD 12/06/2016 08:11 A; Outcome: 09:01 Discharge ordered by Provider. pc 09:12 Discharge Assessment: Patient awake and alert. obeys commands, Oriented to person, ead place and time. patient administered narcotics - yes. Pt provided with safe discharge. The following High Risk Discharge criteria are identified: None. Discharged to home ambulatory, with significant other. Condition: unchanged. Discharge instructions given to patient, significant other, Instructed on discharge instructions, follow up and referral plans. Demonstrated understanding of instructions, Pt was receptive of discharge instructions/ teaching. Ultrasound Study completed. Property sent home with patient. 09:13 Patient left the ED. ead Signatures: Dispatcher [employer] EDCarlos Hartman MD MD pc Cecy Zacarias, Reg Reg Vannessa Jacobson2 Rosalee Aldana Emily, RN RN ead Booth, Mandy, RN RN mlc Ogden, Kari, RN RN ko2 Kelly Arthur MD MD Cassie Bryson, Reg Reg hs2 Alireza Shaffer, Reg Reg pm4 Corrections: (The following items were deleted from the chart) 06:13 06:10 HCG, SERUM QUANTITATIVE+LAB sent. ko2 EDMS Chart Complete MTDD
--- NOTE | 2016-12-08 10:14 | EDDOCDS ---
Physician Documentation [facility] Name: Heidi Harrison Age: 26 yrs Sex: Female : 1990 Arrival Date: 12/06/2016 Time: 04:51 Bed 7 Private MD: Disposition: 12/06 08:58 Critical Care: Critical care not applicable. pc Disposition: 12/06/16 09:01 Discharged to Home/Self Care. Impression: Generalized abdominal pain, state - 5 weeks, 5 days by US, with gestational sac seen without pole as expected for dates. - Condition is Stable. - Discharge Instructions: First Trimester of , Abdominal Pain, Women. - Medication Reconciliation, Local Pharmacy Hours, Work Release Form - 1 day form. - Follow up: Daniel Walsh, OB; When: Per Dr. Bearden, keep your appointment as previously scheduled. ; Reason: Recheck today's complaints, Continuance of care. - Problem is new. - Symptoms have improved. - Notes: Use Tylenol for pain relief Historical: - Allergies: Imitrex (Hives); Maxalt (Hives); SULFA (SULFONAMIDES) (Unknown); - Home Meds: 1. Tylenol 500 mg Oral tab 2 tabs every 4 hours prn (Last dose: 12/06/2016 00:00) 2. Benadryl 25 mg Oral cap 2 caps as needed 3. melatonin 3 mg Oral tab nightly - PMHx: chronic abdominal pain; Migraine Headaches; Irritable bowel syndrome; - PSHx: Tonsillectomy; - Social history: Smoking status: Patient states former smoker of tobacco. No barriers to communication noted, The patient speaks fluent Frisian. - Family history: No immediate family members are acutely ill. - : The pt / caregiver states he / she is not on anticoagulants. Home medication list is obtained from the patient. - Exposure Risk Screening:: None identified. DRY ROOM ATTENDANT: 04:58 LMP 10/19/2016, Verified, EDC 07/26/2017, Gestational age from LMP: 6 weeks 6 mlc days Vital Signs: 04:58 BP 131 / 84; Pulse 79; Resp 20; Temp 96.0; Pulse Ox 100% ; Weight 88.45 kg / 195 lbs; mlc Height 5 ft. 2 in. (157.48 cm); Pain 5/10; 07:53 BP 122 / 74 (auto/); ead 07:54 Pulse 82 MON; Pulse Ox 99% ; ead 09:01 BP 108 / 56 (auto/); ead 09:01 Pulse 60 MON; Resp 16; Pulse Ox 97% on R/A; ead 09:08 Resp 16; Temp 98.2; Pain 6/10; cmb 04:58 Body Mass Index 35.67 (88.45 kg, 157.48 cm) mlc MDM: 05:13 Undress patient appropriately for examination ordered. fg 05:13 IV Saline Lock ordered. fg 05:13 Set up pelvic ordered. fg 05:13 Urinalysis Ordered. EDMS 05:13 Urine Culture Ordered. EDMS 05:13 CBC with Diff Ordered. EDMS 05:13 Basic Metabolic Profile Ordered. EDMS 05:13 Lipase Ordered. EDMS 05:13 Liver Profile Ordered. EDMS 05:13 HCG,Serum Qualitative Ordered. EDMS 05:13 Wet Prep Ordered. EDMS 05:13 GC & Chlamydia Amplification Ordered. EDMS 05:14 NOTHING BY MOUTH+DIET ordered. EDMS 05:40 Financial registration complete. pm4 05:40 [facility] Payment Agreement was scanned into [employer] and attached to record. pm4 06:13 HCG, SERUM QUANTITATIVE Ordered. EDMS 06:15 morphine 2 mg IVP once ordered. fg 06:15 Ondansetron 4 mg IVP once ordered. fg 07:01 US 1st trimester Ordered. EDMS 07:05 Urinalysis Reviewed. pc 07:05 HCG,Serum Qualitative Reviewed. pc 07:05 CBC with Diff Reviewed. pc 07:05 Basic Metabolic Profile Reviewed. pc 07:05 Lipase Reviewed. pc 07:05 Liver Profile Reviewed. pc 07:05 Wet Prep Reviewed. pc 07:05 HCG, SERUM QUANTITATIVE Reviewed. pc 07:34 TRANSVAGINAL US Ordered. EDMS 07:34 DUPLEX SCAN LIMITED (DOPPLER) Ordered. EDMS 08:27 GC & Chlamydia Amplification Reviewed. pc 08:29 Test interpretation: Ultrasound - interpreted by Radiologist, OB 1st trimester pc Gestational sac without pole Gestational age (weeks.days) 5.5. 08:58 The patient has been re-examined and re-evaluated. The clinical presentation did not pc require any ED treatment or interventions. Physician consultation: Dr. Karen Bearden MD was contacted at 08:59, regarding patient's condition, and advises the medications/treatment as provided. and agrees with the treatment provided and advises the discharge plans as outlined. Disposition: The historical points, examination findings, and any diagnostic results supporting the provided diagnosis, were discussed with the patient or legal guardian. The need for outpatient follow up with the provider listed on their discharge instructions was discussed. They were encouraged to return to [facility], or the nearest ED, if symptoms worsen/persist, or for any other questions/concerns. 15:27 T-Sheet-- Draft Copy was scanned into [employer] and attached to record. gb Administered Medications: 06:37 Drug: morphine 2 mg [morphine 2 mg/mL intravenous cartridge (1 mL)] Route: IVP; Site: ko2 left antecubital; 06:37 Drug: Ondansetron 4 mg [ondansetron HCl 2 mg/mL intravenous solution (2 mL)] Route: ko2 IVP; Site: left antecubital; Signatures: Dispatcher [employer] EDMS Carlos Gardner MD MD Cecy Zacarias, Reg Reg gb Anahi Davidson RN RN ead Booth, Mandy, RN RN mlc Gill, Frances, MD MD Alireza Shaffer, Reg Reg pm4 Izabela Lawrence RN ko2 The chart was reviewed and I authenticate all verbal orders and agree with the evaluation and treatment provided.Corrections: (The following items were deleted from the chart) 06:13 06:05 HCG, SERUM QUANTITATIVE+LAB ordered. EDMS EDMS Attachments: 05:40 [facility] Payment Agreement pm4 15:27 T-Sheet-- Draft Copy gb Chart Complete MTDD
--- NOTE | 2016-12-08 10:14 | EDDOCDS ---
Physician Documentation [facility] Name: Heidi Harrison Age: 26 yrs Sex: Female : 1990 Arrival Date: 12/06/2016 Time: 04:51 Bed 7 Private MD: Disposition: 12/06 08:58 Critical Care: Critical care not applicable. pc Disposition: 12/06/16 09:01 Discharged to Home/Self Care. Impression: Generalized abdominal pain, state - 5 weeks, 5 days by US, with gestational sac seen without pole as expected for dates. - Condition is Stable. - Discharge Instructions: First Trimester of , Abdominal Pain, Women. - Medication Reconciliation, Local Pharmacy Hours, Work Release Form - 1 day form. - Follow up: Daniel Walsh, OB; When: Per Dr. Bearden, keep your appointment as previously scheduled. ; Reason: Recheck today's complaints, Continuance of care. - Problem is new. - Symptoms have improved. - Notes: Use Tylenol for pain relief Historical: - Allergies: Imitrex (Hives); Maxalt (Hives); SULFA (SULFONAMIDES) (Unknown); - Home Meds: 1. Tylenol 500 mg Oral tab 2 tabs every 4 hours prn (Last dose: 12/06/2016 00:00) 2. Benadryl 25 mg Oral cap 2 caps as needed 3. melatonin 3 mg Oral tab nightly - PMHx: chronic abdominal pain; Migraine Headaches; Irritable bowel syndrome; - PSHx: Tonsillectomy; - Social history: Smoking status: Patient states former smoker of tobacco. No barriers to communication noted, The patient speaks fluent Croatian. - Family history: No immediate family members are acutely ill. - : The pt / caregiver states he / she is not on anticoagulants. Home medication list is obtained from the patient. - Exposure Risk Screening:: None identified. 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 2 in. (157.48 cm); Pain 5/10; 07:53 BP 122 / 74 (auto/); ead 07:54 Pulse 82 MON; Pulse Ox 99% ; ead 09:01 BP 108 / 56 (auto/); ead 09:01 Pulse 60 MON; Resp 16; Pulse Ox 97% on R/A; ead 09:08 Resp 16; Temp 98.2; Pain 6/10; cmb 04:58 Body Mass Index 35.67 (88.45 kg, 157.48 cm) mlc MDM: 05:13 Undress patient appropriately for examination ordered. fg 05:13 IV Saline Lock ordered. fg 05:13 Set up pelvic ordered. fg 05:13 Urinalysis Ordered. EDMS 05:13 Urine Culture Ordered. EDMS 05:13 CBC with Diff Ordered. EDMS 05:13 Basic Metabolic Profile Ordered. EDMS 05:13 Lipase Ordered. EDMS 05:13 Liver Profile Ordered. EDMS 05:13 HCG,Serum Qualitative Ordered. EDMS 05:13 Wet Prep Ordered. EDMS 05:13 GC & Chlamydia Amplification Ordered. EDMS 05:14 NOTHING BY MOUTH+DIET ordered. EDMS 05:40 Financial registration complete. pm4 05:40 [facility] Payment Agreement was scanned into [employer] and attached to record. pm4 06:13 HCG, SERUM QUANTITATIVE Ordered. EDMS 06:15 morphine 2 mg IVP once ordered. fg 06:15 Ondansetron 4 mg IVP once ordered. fg 07:01 US 1st trimester Ordered. EDMS 07:05 Urinalysis Reviewed. pc 07:05 HCG,Serum Qualitative Reviewed. pc 07:05 CBC with Diff Reviewed. pc 07:05 Basic Metabolic Profile Reviewed. pc 07:05 Lipase Reviewed. pc 07:05 Liver Profile Reviewed. pc 07:05 Wet Prep Reviewed. pc 07:05 HCG, SERUM QUANTITATIVE Reviewed. pc 07:34 TRANSVAGINAL US Ordered. EDMS 07:34 DUPLEX SCAN LIMITED (DOPPLER) Ordered. EDMS 08:27 GC & Chlamydia Amplification Reviewed. pc 08:29 Test interpretation: Ultrasound - interpreted by Radiologist, OB 1st trimester pc Gestational sac without pole Gestational age (weeks.days) 5.5. 08:58 The patient has been re-examined and re-evaluated. The clinical presentation did not pc require any ED treatment or interventions. Physician consultation: Dr. Karen Bearden MD was contacted at 08:59, regarding patient's condition, and advises the medications/treatment as provided. and agrees with the treatment provided and advises the discharge plans as outlined. Disposition: The historical points, examination findings, and any diagnostic results supporting the provided diagnosis, were discussed with the patient or legal guardian. The need for outpatient follow up with the provider listed on their discharge instructions was discussed. They were encouraged to return to [facility], or the nearest ED, if symptoms worsen/persist, or for any other questions/concerns. 15:27 T-Sheet-- Draft Copy was scanned into [employer] and attached to record. gb Administered Medications: 06:37 Drug: morphine 2 mg [morphine 2 mg/mL intravenous cartridge (1 mL)] Route: IVP; Site: ko2 left antecubital; 06:37 Drug: Ondansetron 4 mg [ondansetron HCl 2 mg/mL intravenous solution (2 mL)] Route: ko2 IVP; Site: left antecubital; Signatures: Dispatcher [employer] EDMS Carlos Gardner MD MD Cecy Zacarias, Reg Reg gb Anahi Davidson RN RN ead Booth, Mandy, RN RN mlc Gill, Frances, MD MD Alireza Shaffer, Reg Reg pm4 Izabela Lawrence RN ko2 The chart was reviewed and I authenticate all verbal orders and agree with the evaluation and treatment provided.Corrections: (The following items were deleted from the chart) 06:13 06:05 HCG, SERUM QUANTITATIVE+LAB ordered. EDMS EDMS Attachments: 05:40 [facility] Payment Agreement pm4 15:27 T-Sheet-- Draft Copy gb Chart Complete MTDD
== END 2016-12-06 09:13 | disposition home or self-care (01) ==
LOC: M ED 04:51
DX: O99.89 Other specified diseases and conditions complicating pregnancy, childbirth and the puerperium (principal); R10.32 Left lower quadrant pain; Z3A.01 Less than 8 weeks gestation of pregnancy; G43.909 Migraine, unspecified, not intractable, without status migrainosus; K58.9 Irritable bowel syndrome, unspecified; Z87.891 Personal history of nicotine dependence; Z79.899 Other long term (current) drug therapy; Z88.8 Allergy status to other drugs, medicaments and biological substances; Z88.2 Allergy status to sulfonamides

== ENCOUNTER 2016-12-20 06:20 | Emergency (ER) | payer OTHER ==
[2016-12-20] MEDS ORDERED: METOCLOPRAMIDE INJ 10MG/2ML VIAL (J2765) As Ordered ONE (06:48)
[2016-12-20] MEDS ORDERED: diphenhydrAMINE INJ 50MG/ML VIAL (J1200) As Ordered ONE (06:48)
[2016-12-20 07:01] LABS: BASO % 0.5 % (0.0-1.0); EOS # 0.2 K/mm3 (0.0-0.50); LARGE UNSTAINED CELL # 0.2 K/mm3 (0.0-0.4); LARGE UNSTAINED CELL % 2.2 % (0.0-4.0); LYMPH # 3.2 K/mm3 (1.5-6.5); LYMPH % 36.2 % (24.0-44.0); MEAN CORPUSCULAR HEMOGLOBIN 28.8 pg (27.0-33.0); MEAN CORPUSCULAR HGB CONC 33.1 g/dl (32.0-36.5); MEAN CORPUSCULAR VOLUME 87.1 fl (80.0-96.0); MONO # 0.5 K/mm3 (0.0-0.8); MONO % 5.6 % (0.0-5.0); NEUTROPHILS # 4.4 K/mm3 (1.8-7.7); NEUTROPHILS % 52.5 % (36.0-66.0); PLATELET COUNT, AUTOMATED 291 k/mm3 (150-450); RED CELL DISTRIBUTION WIDTH 12.7 % (11.5-14.5); WHITE BLOOD COUNT 8.3 K/mm3 (4.0-10.0)
[2016-12-20 07:14] LABS: ALBUMIN 3.6 GM/DL (3.2-5.2); ALBUMIN/GLOBULIN RATIO 0.88 (1.00-1.93); ALKALINE PHOSPHATASE 43 U/L (45-117); ALT/SGPT 16 U/L (12-78); AMYLASE 63 U/L (25-115); ANION GAP 10 MEQ/L (8-16); AST/SGOT 12 U/L (15-37); BILIRUBIN,DIRECT < 0.1 MG/DL (0.0-0.2); BILIRUBIN,TOTAL 0.1 MG/DL (0.2-1.0); BLOOD UREA NITROGEN 11 MG/DL (7-18); CALCIUM LEVEL 8.9 MG/DL (8.5-10.1); CARBON DIOXIDE LEVEL 24 MEQ/L (21-32); CHLORIDE LEVEL 103 MEQ/L (98-107); CREATININE FOR GFR 0.75 MG/DL (0.55-1.02); GLOMERULAR FILTRATION RATE > 60.0 (>60); GLUCOSE, FASTING 107 MG/DL (70-105); POTASSIUM SERUM 3.9 MEQ/L (3.5-5.1); SODIUM LEVEL 137 MEQ/L (136-145); TOTAL PROTEIN 7.7 GM/DL (6.4-8.2)
[2016-12-20] MEDS ORDERED: MORPHINE 2 MG/ML 1ML SYRINGE As Ordered ONE (11:00)
[2016-12-20] MEDS ORDERED: NITROFURANTOIN (MACROBID) 100 MG CAP As Ordered ONE (11:59)
--- NOTE | 2016-12-20 13:20 | EDDOCDS ---
Nurse's Notes [facility] Name: Heidi Harrison Age: 26 yrs Sex: Female : 1990 Arrival Date: 12/20/2016 Time: 06:20 Bed 17 Private MD: Diagnosis: Mild hyperemesis gravidarum;Headache;Urinary tract infection, site not specified Presentation: 12/20 06:26 Presenting complaint: Patient states: has a bad headache and is nauseous. She has taken ko2 Tylenol with no relief. Suicide/Homicide risk assessment- the patient denies having any suicidal and/or homicidal ideations and does not present with any other emotional, behavioral or mental health complaints. Status: The patient is a dependent. Transition of care: patient was not received from another setting of care. 06:26 Acuity: CHARITY Level 3 ko2 06:26 Method Of Arrival: Walkin/Carried/Asstd ko2 Triage Assessment: 06:28 General: Appears ill, Behavior is appropriate for age, cooperative. Pain: Location: ko2 head and abdomen Pain currently is 8 out of 10 on a pain scale. HIV screening NA for this visit Offered previously. Neurological: Level of Consciousness is awake, alert. Respiratory: Airway is patent Respiratory effort is even, unlabored. Derm: Skin is normal. 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 Benadryl 25 mg Oral cap 2 caps as needed 2. melatonin 3 mg Oral tab nightly 3. Tylenol 500 mg Oral tab 2 tabs every 4 hours prn (Last dose: 12/19/2016 17:00) - PMHx: chronic abdominal pain; Irritable bowel syndrome; Migraine Headaches; - PSHx: Tonsillectomy; - Social history: Smoking status: Patient states former smoker of tobacco. No barriers to communication noted, The patient speaks fluent Maltese, Speaks appropriately for age. - Family history: Not pertinent. - : The pt / caregiver states he / she is not on anticoagulants. Home medication list is obtained from the patient. - Exposure Risk Screening:: None identified. Screenin:32 Screening information is obtained from the patient. Fall risk: No risks identified. ko2 Assistance ADL's: requires no assistance with activities of daily living. Abuse/DV Screen: The patient / caregiver reports he/she is: not in a situation that causes fear, pain or injury. Nutritional screening: No deficits noted. Advance Directives: Currently, there is no health care proxy. There is no active DNR order. There is no living will. There is no Power of Library Clerk Talking [employer]. home support is adequate. Assessment: 06:43 General: Appears uncomfortable, Behavior is cooperative. Pain: Location: abdomen and ld5 head Pain currently is 6 out of 10 on a pain scale. Neurological: Level of Consciousness is awake, alert. Neurological: Reports headache. Respiratory: Airway is patent Respiratory effort is even, unlabored. GI: Bowel sounds present X 4 quads. Abd is tender to palpation in right upper quadrant and left upper quadrant Reports nausea, vomiting. : Denies vaginal bleeding. 06:55 General: Pt medicated per orders. Lights dimmed for comfort. Call cardona within reach. ld5 Will continue to monitor. 07:17 General: Appears in no apparent distress, Behavior is cooperative. Pain: Location: head js13 Pain currently is 6 out of 10 on a pain scale. Neurological: Level of Consciousness is awake, alert. Respiratory: Airway is patent Respiratory effort is even, unlabored. GI: Abdomen is obese, Bowel sounds present X 4 quads. Abd is tender to palpation. Derm: Skin is normal. 08:01 General: Appears in no apparent distress, comfortable, to be sleeping. Respiratory: js13 Airway is patent Respiratory effort is even, unlabored. Derm: Skin is normal. 08:32 Adult Sepsis Screening: The patient does not have new or worsening altered mentation. js13 Patient's respiratory rate is less than 22. Systolic blood pressure is greater than 100. Patient has a qSOFA score of 0- Negative Sepsis Screen. 09:04 General: Appears in no apparent distress, Behavior is appropriate for age, cooperative. js13 Pain: Location: head Pain currently is 4 out of 10 on a pain scale. Neurological: Level of Consciousness is awake, alert. Respiratory: Airway is patent Respiratory effort is even, unlabored. Derm: Skin is normal. 10:36 Adult Sepsis Screening: The patient does not have new or worsening altered mentation. js13 Patient's respiratory rate is less than 22. Systolic blood pressure is greater than 100. Patient has a qSOFA score of 0- Negative Sepsis Screen. 10:42 General: Appears in no apparent distress, comfortable. Neurological: Level of js13 Consciousness is awake, alert. Respiratory: No deficits noted. Derm: Skin is normal. 11:52 General: Appears in no apparent distress, comfortable, Behavior is appropriate for age, js13 cooperative. Pain: Pain currently is 4 out of 10 on a pain scale. Neurological: Level of Consciousness is awake, alert. Respiratory: Airway is patent Respiratory effort is even, unlabored. Derm: Skin is normal. 12:34 General: Appears in no apparent distress, comfortable, to be sleeping. Respiratory: No [facility] deficits noted. Airway is patent Respiratory effort is even, unlabored. Derm: Skin is normal. 13:16 General: Appears in no apparent distress, comfortable, Behavior is appropriate for age, js13 cooperative. Pain: Pain currently is 2 out of 10 on a pain scale. Neurological: Level of Consciousness is awake, alert. Respiratory: Airway is patent Respiratory effort is even, unlabored. Derm: Skin is normal. Vital Signs: 06:29 BP 140 / 85; Pulse 75; Resp 18; Temp 97.8(TE); Pulse Ox 99% ; Weight 88.45 kg; Height 5 ko2 ft. 2 in. (157.48 cm); Pain 8/10; 08:32 BP 132 / 78; Pulse 68; Resp 14; Temp 98.0(O); Pulse Ox 98% on R/A; js13 10:50 BP 128 / 74; Pulse 72; Resp 14; Temp 98.5(O); Pulse Ox 97% on R/A; js13 11:20 Pain 3/10; js13 12:51 BP 114 / 69; Pulse 67; Resp 20; Temp 97.9; Pulse Ox 100% on R/A; Pain 2/10; tmm1 13:16 BP 112 / 70; Pulse 68; Resp 14; Temp 98.2(O); Pulse Ox 98% on R/A; Pain 2/10; js13 06:29 Body Mass Index 35.67 (88.45 kg, 157.48 cm) ko2 Vitals: 06:29 Log In Time: December 20, 2016 at 06:20. ko2 ED Course: 06:22 Patient visited by Alireza Shaffer Reg. pm4 06:22 Patient moved to Waiting pm4 06:25 Patient moved to Triage 1 ko2 06:27 Triage Initiated ko2 06:33 Patient moved to 17 ko2 06:35 Dany Johnson DO is Attending Physician. cs11 06:35 Patient visited by Dany Johnson DO. cs11 06:45 Patient visited by Sybil Guillen,ROSAURA. ld5 06:46 Patient visited by Sybil Guillen RN. ld5 06:46 Inserted saline lock: 20 gauge in left antecubital area and blood collected. The ld5 patient tolerated the procedure well. Labs drawn. (by ED staff). Sent per order to lab. 06:46 Liver Profile Sent. ld5 06:46 MED Profile Sent. ld5 06:46 CBC with Diff Sent. ld5 06:56 LIPASE Sent. ld5 06:56 AMYLASE Sent. ld5 06:57 Patient visited by Sybil Guillen RN. ld5 07:03 Attending Physician role handed off by Dany Johnson DO br1 07:03 Rakesh Calvert MD is Attending Physician. br1 07:16 Guari Lomas RN is Primary Nurse. js13 07:17 The patient / caregiver is instructed regarding the plan of care and ED course. js13 07:17 No procedures done that require assistance. js13 07:18 Patient visited by Gauri Lomas RN. js13 08:01 Patient visited by Gauri Lomas RN. js13 09:05 Patient visited by Gauri Lomas RN. js13 09:32 REPLACED BY [facility] Payment Agreement was scanned into [employer] and attached to record. lg 10:05 Patient visited by Dominick Estrada. jml1 10:42 Patient visited by Gauri Lomas RN. js13 11:01 Patient visited by Rakesh Calvert MD. br1 11:53 Patient visited by Gauri Lomas RN. js13 12:35 Patient visited by Gauri Lomas RN. js13 12:48 Patient visited by Rakesh Calvert MD. br1 12:51 Patient visited by Afsaneh Vázquez PCA. tmm1 12:52 Daniel Walsh OB is Referral Physician. br1 Administered Medications: 06:56 Drug: Metoclopramide 10 mg [metoclopramide 5 mg/mL injection solution] Route: IV; Rate: ld5 40 mg/hr; Infused Over: 15 mins; Site: left antecubital; 06:56 Drug: diphenhydrAMINE 25 mg [diphenhydramine 50 mg/mL injection solution (0.5 mL)] ld5 Route: IVP; Site: left antecubital; 06:57 Drug: NS 0.9% 1000 ml [sodium chloride 0.9 % intravenous solution] Route: IV; Rate: ld5 bolus; Site: left antecubital; 12:37 Follow up: IV Status: Completed infusion; IV Intake: 1000ml js13 11:03 Drug: morphine 2 mg [morphine 2 mg/mL intravenous cartridge (1 mL)] Route: IVP; Site: jo3 left antecubital; 11:20 Follow up: Pain 10 Adult; Response: Confirmed pt not driving.; Pain is decreased js13 12:03 Drug: Nitrofurantoin 100 mg [nitrofurantoin macrocrystal 50 mg capsule (2 caps)] Route: js13 PO; Intake: 12:37 IV: 1000.00ml; Total: 1000.00ml. js13 Order Results: Lab Order: CBC with Diff; SPEC'M 12/20/16 06:42 Test: WHITE BLOOD COUNT; Value: 8.3; Range: 4.0-10.0; Units: K/mm3; Status: F Test: RED BLOOD COUNT; Value: 4.41; Range: 4.00-5.40; Units: M/mm3; Status: F Test: HEMOGLOBIN; Value: 12.7; Range: 12.0-16.0; Units: g/dl; Status: F Test: HEMATOCRIT; Value: 38.4; Range: 36.0-47.0; Units: %; Status: F Test: MEAN CORPUSCULAR VOLUME; Value: 87.1; Range: 80.0-96.0; Units: fl; Status: F Test: MEAN CORPUSCULAR HEMOGLOBIN; Value: 28.8; Range: 27.0-33.0; Units: pg; Status: F Test: MEAN CORPUSCULAR HGB CONC; Value: 33.1; Range: 32.0-36.5; Units: g/dl; Status: F Test: RED CELL DISTRIBUTION WIDTH; Value: 12.7; Range: 11.5-14.5; Units: %; Status: F Test: PLATELET COUNT, AUTOMATED; Value: 291; Range: 150-450; Units: k/mm3; Status: F Test: NEUTROPHILS %; Value: 52.5; Range: 36.0-66.0; Units: %; Status: F Test: LYMPH %; Value: 36.2; Range: 24.0-44.0; Units: %; Status: F Test: MONO %; Value: 5.6; Range: 0.0-5.0; Abnormal: Above high normal; Units: %; Status: F Test: EOS %; Value: 3.0; Range: 0.0-3.0; Units: %; Status: F Test: BASO %; Value: 0.5; Range: 0.0-1.0; Units: %; Status: F Test: LARGE UNSTAINED CELL %; Value: 2.2; Range: 0.0-4.0; Units: %; Status: F Test: NEUTROPHILS #; Value: 4.4; Range: 1.8-7.7; Units: K/mm3; Status: F Test: LYMPH #; Value: 3.2; Range: 1.5-6.5; Units: K/mm3; Status: F Test: MONO #; Value: 0.5; Range: 0.0-0.8; Units: K/mm3; Status: F Test: EOS #; Value: 0.2; Range: 0.0-0.50; Units: K/mm3; Status: F Test: BASO #; Value: 0.0; Range: 0.0-0.2; Units: K/mm3; Status: F Test: LARGE UNSTAINED CELL #; Value: 0.2; Range: 0.0-0.4; Units: K/mm3; Status: F Lab Order: MED Profile; [facility] 12/20/16 06:42 Test: GLUCOSE, FASTING; Value: 107; Range: 70-105; Abnormal: Above high normal; Units: MG/DL; Status: F Test: BLOOD UREA NITROGEN; Value: 11; Range: 7-18; Units: MG/DL; Status: F Test: CREATININE FOR GFR; Value: 0.75; Range: 0.55-1.02; Units: MG/DL; Status: F Test: GLOMERULAR FILTRATION RATE; Value: > 60.0; Range: >60; Status: F Test: SODIUM LEVEL; Value: 137; Range: 136-145; Units: MEQ/L; Status: F Test: POTASSIUM SERUM; Value: 3.9; Range: 3.5-5.1; Units: MEQ/L; Status: F Test: CHLORIDE LEVEL; Value: 103; Range: 98-107; Units: MEQ/L; Status: F Test: CARBON DIOXIDE LEVEL; Value: 24; Range: 21-32; Units: MEQ/L; Status: F Test: ANION GAP; Value: 10; Range: 8-16; Units: MEQ/L; Status: F Test: CALCIUM LEVEL; Value: 8.9; Range: 8.5-10.1; Units: MG/DL; Status: F Test Note: ; Units are mL/min/1.73 m2 Chronic Kidney Disease Staging per NKF: Stage I & II GFR >=60 Normal to Mildly Decreased Stage III GFR 30-59 Moderately Decreased Stage IV GFR 15-29 Severely Decreased Stage V GFR <15 Very Little GFR Left ESRD GFR <15 on BOBBIN MARKER Lab Order: Liver Profile; [facility] 12/20/16 06:42 Test: AST/SGOT; Value: 12; Range: 15-37; Abnormal: Below low normal; Units: U/L; Status: F Test: ALT/SGPT; Value: 16; Range: 12-78; Units: U/L; Status: F Test: ALKALINE PHOSPHATASE; Value: 43; Range: 45-117; Abnormal: Below low normal; Units: U/L; Status: F Test: BILIRUBIN,TOTAL; Value: 0.1; Range: 0.2-1.0; Abnormal: Below low normal; Units: MG/DL; Status: F Test: BILIRUBIN,DIRECT; Value: < 0.1; Range: 0.0-0.2; Units: MG/DL; Status: F Test: TOTAL PROTEIN; Value: 7.7; Range: 6.4-8.2; Units: GM/DL; Status: F Test: ALBUMIN; Value: 3.6; Range: 3.2-5.2; Units: GM/DL; Status: F Test: ALBUMIN/GLOBULIN RATIO; Value: 0.88; Range: 1.00-1.93; Abnormal: Below low normal; Status: F Lab Order: Urinalysis; SPEC'M 12/20/16 10:22 Test: APPEARANCE, URINE; Value: HAZY; Range: CLEAR; Status: F Test: COLOR, URINE; Value: YELLOW; Range: YELLOW; Status: F Test: PH,URINE; Value: 6.0; Range: 5.0-9.0; Units: UNITS; Status: F Test: SPECIFIC GRAVITY URINE AUTO; Value: 1.021; Range: 1.002-1.035; Status: F Test: PROTEIN, URINE AUTO; Value: NEGATIVE; Range: NEGATIVE; Units: mg/dL; Status: F Test: GLUCOSE, URINE (UA) AUTO; Value: NEGATIVE; Range: NEGATIVE; Units: mg/dL; Status: F Test: KETONE, URINE AUTO; Value: NEGATIVE; Range: NEGATIVE; Units: mg/dL; Status: F Test: UROBILINOGEN, URINE AUTO; Value: 0.2; Range: 0.0-2.0; Units: mg/dL; Status: F Test: BILIRUBIN, URINE AUTO; Value: NEGATIVE; Range: NEGATIVE; Status: F Test: NITRITE, URINE AUTO; Value: NEGATIVE; Range: NEGATIVE; Status: F Test: LEUKOCYTE ESTERASE, URINE AUTO; Value: 2+; Range: NEGATIVE; Abnormal: Above high normal; Status: F Test: BLOOD, URINE BLOOD; Value: NEGATIVE; Range: NEGATIVE; Status: F Test: WBC, URINE AUTO; Value: 6; Range: 0-3; Abnormal: Above high normal; Units: /HPF; Status: F Test: RBC, URINE AUTO; Value: 1; Range: 0-3; Units: /HPF; Status: F Test: BACTERIA, URINE AUTO; Value: 1+; Range: NEGATIVE; Abnormal: Above high normal; Status: F Test: SQUAMOUS EPITHELIAL CELL UR AU; Value: 2; Range: 0-6; Units: /HPF; Status: F Test: MUCUS, URINE; Value: SMALL; Range: NEGATIVE; Status: F Test: HYALINE CAST, URINE AUTO; Value: 0; Range: 0-1; Units: /LPF; Status: F Lab Order: AMYLASE; SPEC'M 12/20/16 06:42 Test: AMYLASE; Value: 63; Range: 25-115; Units: U/L; Status: F Lab Order: LIPASE; SPEC'M 12/20/16 06:42 Test: LIPASE; Value: 137; Range: 73-393; Units: U/L; Status: F Outcome: 12:53 Discharge ordered by Provider. br1 13:16 Discharge Assessment: Patient awake, alert and oriented x 3. No cognitive and/or js13 functional deficits noted. Patient verbalized understanding of disposition instructions. patient administered narcotics - yes. Pt provided with safe discharge. The following High Risk Discharge criteria are identified: None. Discharged to home ambulatory. Condition: stable. Discharge instructions given to patient, Instructed on discharge instructions, follow up and referral plans. medication usage, Demonstrated understanding of instructions, medications, Pt was receptive of discharge instructions/ teaching. Prescriptions given X 2, Work note provided to patient. No special radiology studies were completed. Property :Personal belongings accompany Pt. 13:19 Patient left the ED. js13 Signatures: Siddhartha Morton, Reg Reg lg Gauri Hopkins,RN RN jo3 Rakesh Calvert MD MD br1 Sybil Guillen,RN RN daron5 Dominick Estrada jml1 Gauri Lomas,RN RN js13 Dany Johnson, DO cs11 McLear, Afsaneh, TRAINING SYSTEMS OFFICER TRAINING SYSTEMS OFFICER tmm1 Izabela Lawrence RN RN ko2 Alireza Shaffer, Reg Reg pm4 Corrections: (The following items were deleted from the chart) 06:48 06:46 LIPASE+LAB sent. ld5 EDMS 06:48 06:46 AMYLASE+LAB sent. ld5 EDMS MTDD
--- NOTE | 2016-12-20 13:20 | EDDOCDS ---
Physician Documentation [facility] Name: Heidi Harrison Age: 26 yrs Sex: Female : 1990 Arrival Date: 12/20/2016 Time: 06:20 Bed 17 Private MD: Disposition: 12/20/16 12:53 Discharged to Home/Self Care. Impression: Mild hyperemesis gravidarum, Headache, Urinary tract infection, site not specified. - Condition is Stable. - Discharge Instructions: General Headache Without Cause, Hyperemesis Gravidarum, Urinary Tract Infection. - Prescriptions for ZOFRAN ODT 4 mg - dissolve 1 tablet by ORAL route 4 times per day As needed do not chew, do not swallow whole; 10 tablet. Macrobid 100 mg Oral Capsule - take 100 milligrams by ORAL route every 12 hours for 7 days; 14 capsule. - Medication Reconciliation, Local Pharmacy Hours, Work Release Form - 3 day form. - Follow up: [facility]; When: 2 - 3 days; Reason: Recheck today's complaints. - Problem is new. - Symptoms have improved. - Notes: You were seen in the ED for headache, nausea and vomiting. Bloodwork showed no acute findings. Urine tests showed bacteria which may be a sign of urinary tract infection. You were treated and improved with medications. As you are feeling better you may return home. Clal your Daniel Walsh [facility] doctor today to discuss the ED visit and arrange to be seen. take the antibiotics as written, tylenol as needed for pain and Zofran as needed for nausea. Return to the ED for any worsening or uncontrolled pain, fever, vision changes, or any other concerns. Historical: - Allergies: Imitrex (Hives); Maxalt (Hives); SULFA (SULFONAMIDES) (Unknown); - Home Meds: 1. Benadryl 25 mg Oral cap 2 caps as needed 2. melatonin 3 mg Oral tab nightly 3. Tylenol 500 mg Oral tab 2 tabs every 4 hours prn (Last dose: 12/19/2016 17:00) - PMHx: chronic abdominal pain; Irritable bowel syndrome; Migraine Headaches; - PSHx: Tonsillectomy; - Social history: Smoking status: Patient states former smoker of tobacco. No barriers to communication noted, The patient speaks fluent Bel[place]an, Speaks appropriately for age. - Family history: Not pertinent. - : The pt / caregiver states he / she is not on anticoagulants. Home medication list is obtained from the patient. - Exposure Risk Screening:: None identified. MOUNTER: 12/20 06:29 LMP 10/19/2016, Verified, EDC 07/26/2017, Gestational age from LMP: 8 weeks 6 ko2 days Vital Signs: 06:29 BP 140 / 85; Pulse 75; Resp 18; Temp 97.8(TE); Pulse Ox 99% ; Weight 88.45 kg / 195 ko2 lbs; Height 5 ft. 2 in. (157.48 cm); Pain 8/10; 08:32 BP 132 / 78; Pulse 68; Resp 14; Temp 98.0(O); Pulse Ox 98% on R/A; js13 10:50 BP 128 / 74; Pulse 72; Resp 14; Temp 98.5(O); Pulse Ox 97% on R/A; js13 11:20 Pain 3/10; js13 12:51 BP 114 / 69; Pulse 67; Resp 20; Temp 97.9; Pulse Ox 100% on R/A; Pain 2/10; tmm1 13:16 BP 112 / 70; Pulse 68; Resp 14; Temp 98.2(O); Pulse Ox 98% on R/A; Pain 2/10; js13 06:29 Body Mass Index 35.67 (88.45 kg, 157.48 cm) ko2 MDM: 06:44 IV Saline Lock ordered. cs11 06:44 NS 0.9% 1000 ml IV at bolus once ordered. cs11 06:44 Metoclopramide 10 mg IV at 40 mg/hr once over 15 mins ordered. cs11 06:44 diphenhydrAMINE 25 mg IVP once ordered. cs11 06:45 CBC with Diff Ordered. EDMS 06:45 MED Profile Ordered. EDMS 06:45 Liver Profile Ordered. EDMS 06:45 Urinalysis Ordered. EDMS 06:45 Urine Culture Ordered. EDMS 06:48 AMYLASE Ordered. EDMS 06:48 LIPASE Ordered. EDMS 07:43 Financial registration complete. lg 09:32 [facility] [place] Agreement was scanned into [employer] and attached to record. lg 10:47 CBC with Diff Reviewed. br1 10:47 MED Profile Reviewed. br1 10:47 Liver Profile Reviewed. br1 10:47 Urinalysis Reviewed. br1 10:47 AMYLASE Reviewed. br1 10:47 LIPASE Reviewed. br1 11:00 morphine 2 mg IVP once ordered. br1 11:24 Nitrofurantoin 100 mg PO once ordered. br1 Administered Medications: 06:56 Drug: Metoclopramide 10 mg [metoclopramide 5 mg/mL injection solution] Route: IV; Rate: ld5 40 mg/hr; Infused Over: 15 mins; Site: left antecubital; 06:56 Drug: diphenhydrAMINE 25 mg [diphenhydramine 50 mg/mL injection solution (0.5 mL)] ld5 Route: IVP; Site: left antecubital; 06:57 Drug: NS 0.9% 1000 ml [sodium chloride 0.9 % intravenous solution] Route: IV; Rate: ld5 bolus; Site: left antecubital; 12:37 Follow up: IV Status: Completed infusion; IV Intake: 1000ml js13 11:03 Drug: morphine 2 mg [morphine 2 mg/mL intravenous cartridge (1 mL)] Route: IVP; Site: jo3 left antecubital; 11:20 Follow up: Pain 01/12 Adult; Response: Confirmed pt not driving.; Pain is decreased js13 12:03 Drug: Nitrofurantoin 100 mg [nitrofurantoin macrocrystal 50 mg capsule (2 caps)] Route: js13 PO; Signatures: Dispatcher [employer] EDSiddhartha Oconnell, Daniel Reg lg Rakesh Calvert MD MD br1 Gauri Lomas,RN RN js13 Dany Johnson DO DO 11 Izabela Lawrence RN RN ko2 Gauri Hopkins RN3 Sybil Guillen RN ld5 The chart was reviewed and I authenticate all verbal orders and agree with the evaluation and treatment provided.Corrections: (The following items were deleted from the chart) 06:48 06:45 AMYLASE+LAB ordered. EDMS EDMS 06:48 06:45 LIPASE+LAB ordered. EDMS EDMS Attachments: 09:32 [facility] Payment Agreement lg MTDD
--- NOTE | 2016-12-22 14:19 | EDDOCDS ---
Nurse's Notes [facility] Name: Heidi Harrison Age: 26 yrs Sex: Female : 1990 Arrival Date: 12/20/2016 Time: 06:20 Bed 17 Private MD: Diagnosis: Mild hyperemesis gravidarum;Headache;Urinary tract infection, site not specified Presentation: 12/20 06:26 Presenting complaint: Patient states: has a bad headache and is nauseous. She has taken ko2 Tylenol with no relief. Suicide/Homicide risk assessment- the patient denies having any suicidal and/or homicidal ideations and does not present with any other emotional, behavioral or mental health complaints. Status: The patient is a dependent. Transition of care: patient was not received from another setting of care. 06:26 Acuity: CHARITY Level 3 ko2 06:26 Method Of Arrival: Walkin/Carried/Asstd ko2 Triage Assessment: 06:28 General: Appears ill, Behavior is appropriate for age, cooperative. Pain: Location: ko2 head and abdomen Pain currently is 8 out of 10 on a pain scale. HIV screening NA for this visit Offered previously. Neurological: Level of Consciousness is awake, alert. Respiratory: Airway is patent Respiratory effort is even, unlabored. Derm: Skin is normal. RN TRANSITIONAL: 06:29 LMP 10/19/2016, Verified, EDC 07/26/2017, Gestational age from LMP: 8 weeks 6 ko2 days Historical: - Allergies: Imitrex (Hives); Maxalt (Hives); SULFA (SULFONAMIDES) (Unknown); - Home Meds: 1. Benadryl 25 mg Oral cap 2 caps as needed 2. melatonin 3 mg Oral tab nightly 3. Tylenol 500 mg Oral tab 2 tabs every 4 hours prn (Last dose: 12/19/2016 17:00) - PMHx: chronic abdominal pain; Irritable bowel syndrome; Migraine Headaches; - PSHx: Tonsillectomy; - Social history: Smoking status: Patient states former smoker of tobacco. No barriers to communication noted, The patient speaks fluent Welsh, Speaks appropriately for age. - Family history: Not pertinent. - : The pt / caregiver states he / she is not on anticoagulants. Home medication list is obtained from the patient. - Exposure Risk Screening:: None identified. Screenin:32 Screening information is obtained from the patient. Fall risk: No risks identified. ko2 Assistance ADL's: requires no assistance with activities of daily living. Abuse/DV Screen: The patient / caregiver reports he/she is: not in a situation that causes fear, pain or injury. Nutritional screening: No deficits noted. Advance Directives: Currently, there is no health care proxy. There is no active DNR order. There is no living will. There is no Power of Stripper Machine Operator. home support is adequate. Assessment: 06:43 General: Appears uncomfortable, Behavior is cooperative. Pain: Location: abdomen and ld5 head Pain currently is 6 out of 10 on a pain scale. Neurological: Level of Consciousness is awake, alert. Neurological: Reports headache. Respiratory: Airway is patent Respiratory effort is even, unlabored. GI: Bowel sounds present X 4 quads. Abd is tender to palpation in right upper quadrant and left upper quadrant Reports nausea, vomiting. : Denies vaginal bleeding. 06:55 General: Pt medicated per orders. Lights dimmed for comfort. Call cardona within reach. ld5 Will continue to monitor. 07:17 General: Appears in no apparent distress, Behavior is cooperative. Pain: Location: head js13 Pain currently is 6 out of 10 on a pain scale. Neurological: Level of Consciousness is awake, alert. Respiratory: Airway is patent Respiratory effort is even, unlabored. GI: Abdomen is obese, Bowel sounds present X 4 quads. Abd is tender to palpation. Derm: Skin is normal. 08:01 General: Appears in no apparent distress, comfortable, to be sleeping. Respiratory: js13 Airway is patent Respiratory effort is even, unlabored. Derm: Skin is normal. 08:32 Adult Sepsis Screening: The patient does not have new or worsening altered mentation. js13 Patient's respiratory rate is less than 22. Systolic blood pressure is greater than 100. Patient has a qSOFA score of 0- Negative Sepsis Screen. 09:04 General: Appears in no apparent distress, Behavior is appropriate for age, cooperative. js13 Pain: Location: head Pain currently is 4 out of 10 on a pain scale. Neurological: Level of Consciousness is awake, alert. Respiratory: Airway is patent Respiratory effort is even, unlabored. Derm: Skin is normal. 10:36 Adult Sepsis Screening: The patient does not have new or worsening altered mentation. js13 Patient's respiratory rate is less than 22. Systolic blood pressure is greater than 100. Patient has a qSOFA score of 0- Negative Sepsis Screen. 10:42 General: Appears in no apparent distress, comfortable. Neurological: Level of js13 Consciousness is awake, alert. Respiratory: No deficits noted. Derm: Skin is normal. 11:52 General: Appears in no apparent distress, comfortable, Behavior is appropriate for age, js13 cooperative. Pain: Pain currently is 4 out of 10 on a pain scale. Neurological: Level of Consciousness is awake, alert. Respiratory: Airway is patent Respiratory effort is even, unlabored. Derm: Skin is normal. 12:34 General: Appears in no apparent distress, comfortable, to be sleeping. Respiratory: No [place] [facility] deficits noted. Airway is patent Respiratory effort is even, unlabored. Derm: Skin is normal. 13:16 General: Appears in no apparent distress, comfortable, Behavior is appropriate for age, js13 cooperative. Pain: Pain currently is 2 out of 10 on a pain scale. Neurological: Level of Consciousness is awake, alert. Respiratory: Airway is patent Respiratory effort is even, unlabored. Derm: Skin is normal. Vital Signs: 06:29 BP 140 / 85; Pulse 75; Resp 18; Temp 97.8(TE); Pulse Ox 99% ; Weight 88.45 kg; Height 5 ko2 ft. 2 in. (157.48 cm); Pain 8/10; 08:32 BP 132 / 78; Pulse 68; Resp 14; Temp 98.0(O); Pulse Ox 98% on R/A; js13 10:50 BP 128 / 74; Pulse 72; Resp 14; Temp 98.5(O); Pulse Ox 97% on R/A; js13 11:20 Pain 3/10; js13 12:51 BP 114 / 69; Pulse 67; Resp 20; Temp 97.9; Pulse Ox 100% on R/A; Pain 2/10; tmm1 13:16 BP 112 / 70; Pulse 68; Resp 14; Temp 98.2(O); Pulse Ox 98% on R/A; Pain 2/10; js13 06:29 Body Mass Index 35.67 (88.45 kg, 157.48 cm) ko2 Vitals: 06:29 Log In Time: December 20, 2016 at 06:20. ko2 ED Course: 06:22 Patient visited by Alireza Shaffer Reg. pm4 06:22 Patient moved to Waiting pm4 06:25 Patient moved to Triage 1 ko2 06:27 Triage Initiated ko2 06:33 Patient moved to 17 ko2 06:35 Dany Johnson DO is Attending Physician. cs11 06:35 Patient visited by Dany Johnson DO. cs11 06:45 Patient visited by Sybil Guillen,ROSAURA. ld5 06:46 Patient visited by Sybil Guillen RN. ld5 06:46 Inserted saline lock: 20 gauge in left antecubital area and blood collected. The ld5 patient tolerated the procedure well. Labs drawn. (by ED staff). Sent per order to lab. 06:46 Liver Profile Sent. ld5 06:46 MED Profile Sent. ld5 06:46 CBC with Diff Sent. ld5 06:56 LIPASE Sent. ld5 06:56 AMYLASE Sent. ld5 06:57 Patient visited by Sybil Guillen RN. ld5 07:03 Attending Physician role handed off by Dany Johnson DO br1 07:03 Rakesh Calvert MD is Attending Physician. br1 07:16 Gauri Lomas RN is Primary Nurse. js13 07:17 The patient / caregiver is instructed regarding the plan of care and ED course. js13 07:17 No procedures done that require assistance. js13 07:18 Patient visited by Gauri Lomas RN. js13 08:01 Patient visited by Gauri Lomas RN. js13 09:05 Patient visited by Gauri Lomas RN. js13 09:32 [facility] Payment Agreement was scanned into [employer] and attached to record. lg 10:05 Patient visited by Dominick Estrada. jml1 10:42 Patient visited by Gauri Lomas RN. js13 11:01 Patient visited by Rakesh Calvert MD. br1 11:53 Patient visited by Gauri Lomas RN. js13 12:35 Patient visited by Gauri Lomas RN. js13 12:48 Patient visited by Rakesh Calvert MD. br1 12:51 Patient visited by Afsaneh Vázquez PCA. tmm1 12:52 Daniel [facility] is Referral Physician. br1 14:25 T-Sheet-- Draft Copy was scanned into [employer] and attached to record. klr Administered Medications: 06:56 Drug: Metoclopramide 10 mg [metoclopramide 5 mg/mL injection solution] Route: IV; Rate: ld5 40 mg/hr; Infused Over: 15 mins; Site: left antecubital; 06:56 Drug: diphenhydrAMINE 25 mg [diphenhydramine 50 mg/mL injection solution (0.5 mL)] ld5 Route: IVP; Site: left antecubital; 06:57 Drug: NS 0.9% 1000 ml [sodium chloride 0.9 % intravenous solution] Route: IV; Rate: ld5 bolus; Site: left antecubital; 12:37 Follow up: IV Status: Completed infusion; IV Intake: 1000ml js13 11:03 Drug: morphine 2 mg [morphine 2 mg/mL intravenous cartridge (1 mL)] Route: IVP; Site: jo3 left antecubital; 11:20 Follow up: Pain 3/10 Adult; Response: Confirmed pt not driving.; Pain is decreased js13 12:03 Drug: Nitrofurantoin 100 mg [nitrofurantoin macrocrystal 50 mg capsule (2 caps)] Route: js13 PO; Intake: 12:37 IV: 1000.00ml; Total: 1000.00ml. js13 Order Results: Lab Order: CBC with Diff; SPEC'M 12/20/16 06:42 Test: WHITE BLOOD COUNT; Value: 8.3; Range: 4.0-10.0; Units: K/mm3; Status: F Test: RED BLOOD COUNT; Value: 4.41; Range: 4.00-5.40; Units: M/mm3; Status: F Test: HEMOGLOBIN; Value: 12.7; Range: 12.0-16.0; Units: g/dl; Status: F Test: HEMATOCRIT; Value: 38.4; Range: 36.0-47.0; Units: %; Status: F Test: MEAN CORPUSCULAR VOLUME; Value: 87.1; Range: 80.0-96.0; Units: fl; Status: F Test: MEAN CORPUSCULAR HEMOGLOBIN; Value: 28.8; Range: 27.0-33.0; Units: pg; Status: F Test: MEAN CORPUSCULAR HGB CONC; Value: 33.1; Range: 32.0-36.5; Units: g/dl; Status: F Test: RED CELL DISTRIBUTION WIDTH; Value: 12.7; Range: 11.5-14.5; Units: %; Status: F Test: PLATELET COUNT, AUTOMATED; Value: 291; Range: 150-450; Units: k/mm3; Status: F Test: NEUTROPHILS %; Value: 52.5; Range: 36.0-66.0; Units: %; Status: F Test: LYMPH %; Value: 36.2; Range: 24.0-44.0; Units: %; Status: F Test: MONO %; Value: 5.6; Range: 0.0-5.0; Abnormal: Above high normal; Units: %; Status: F Test: EOS %; Value: 3.0; Range: 0.0-3.0; Units: %; Status: F Test: BASO %; Value: 0.5; Range: 0.0-1.0; Units: %; Status: F Test: LARGE UNSTAINED CELL %; Value: 2.2; Range: 0.0-4.0; Units: %; Status: F Test: NEUTROPHILS #; Value: 4.4; Range: 1.8-7.7; Units: K/mm3; Status: F Test: LYMPH #; Value: 3.2; Range: 1.5-6.5; Units: K/mm3; Status: F Test: MONO #; Value: 0.5; Range: 0.0-0.8; Units: K/mm3; Status: F Test: EOS #; Value: 0.2; Range: 0.0-0.50; Units: K/mm3; Status: F Test: BASO #; Value: 0.0; Range: 0.0-0.2; Units: K/mm3; Status: F Test: LARGE UNSTAINED CELL #; Value: 0.2; Range: 0.0-0.4; Units: K/mm3; Status: F Lab Order: MED Profile; SPEC'M 12/20/16 06:42 Test: GLUCOSE, FASTING; Value: 107; Range: 70-105; Abnormal: Above high normal; Units: MG/DL; Status: F Test: BLOOD UREA NITROGEN; Value: 11; Range: 7-18; Units: MG/DL; Status: F Test: CREATININE FOR GFR; Value: 0.75; Range: 0.55-1.02; Units: MG/DL; Status: F Test: GLOMERULAR FILTRATION RATE; Value: > 60.0; Range: >60; Status: F Test: SODIUM LEVEL; Value: 137; Range: 136-145; Units: MEQ/L; Status: F Test: POTASSIUM SERUM; Value: 3.9; Range: 3.5-5.1; Units: MEQ/L; Status: F Test: CHLORIDE LEVEL; Value: 103; Range: 98-107; Units: MEQ/L; Status: F Test: CARBON DIOXIDE LEVEL; Value: 24; Range: 21-32; Units: MEQ/L; Status: F Test: ANION GAP; Value: 10; Range: 8-16; Units: MEQ/L; Status: F Test: CALCIUM LEVEL; Value: 8.9; Range: 8.5-10.1; Units: MG/DL; Status: F Test Note: ; Units are mL/min/1.73 m2 Chronic Kidney Disease Staging per NKF: Stage I & II GFR >=60 Normal to Mildly Decreased Stage III GFR 30-59 Moderately Decreased Stage IV GFR 15-29 Severely Decreased Stage V GFR <15 Very Little GFR Left ESRD GFR <15 on ASSESSMENT COORDINATOR Lab Order: Liver Profile; [facility] 12/20/16 06:42 Test: AST/SGOT; Value: 12; Range: 15-37; Abnormal: Below low normal; Units: U/L; Status: F Test: ALT/SGPT; Value: 16; Range: 12-78; Units: U/L; Status: F Test: ALKALINE PHOSPHATASE; Value: 43; Range: 45-117; Abnormal: Below low normal; Units: U/L; Status: F Test: BILIRUBIN,TOTAL; Value: 0.1; Range: 0.2-1.0; Abnormal: Below low normal; Units: MG/DL; Status: F Test: BILIRUBIN,DIRECT; Value: < 0.1; Range: 0.0-0.2; Units: MG/DL; Status: F Test: TOTAL PROTEIN; Value: 7.7; Range: 6.4-8.2; Units: GM/DL; Status: F Test: ALBUMIN; Value: 3.6; Range: 3.2-5.2; Units: GM/DL; Status: F Test: ALBUMIN/GLOBULIN RATIO; Value: 0.88; Range: 1.00-1.93; Abnormal: Below low normal; Status: F Lab Order: Urinalysis; SPEC'M 12/20/16 10:22 Test: APPEARANCE, URINE; Value: HAZY; Range: CLEAR; Status: F Test: COLOR, URINE; Value: YELLOW; Range: YELLOW; Status: F Test: PH,URINE; Value: 6.0; Range: 5.0-9.0; Units: UNITS; Status: F Test: SPECIFIC GRAVITY URINE AUTO; Value: 1.021; Range: 1.002-1.035; Status: F Test: PROTEIN, URINE AUTO; Value: NEGATIVE; Range: NEGATIVE; Units: mg/dL; Status: F Test: GLUCOSE, URINE (UA) AUTO; Value: NEGATIVE; Range: NEGATIVE; Units: mg/dL; Status: F Test: KETONE, URINE AUTO; Value: NEGATIVE; Range: NEGATIVE; Units: mg/dL; Status: F Test: UROBILINOGEN, URINE AUTO; Value: 0.2; Range: 0.0-2.0; Units: mg/dL; Status: F Test: BILIRUBIN, URINE AUTO; Value: NEGATIVE; Range: NEGATIVE; Status: F Test: NITRITE, URINE AUTO; Value: NEGATIVE; Range: NEGATIVE; Status: F Test: LEUKOCYTE ESTERASE, URINE AUTO; Value: 2+; Range: NEGATIVE; Abnormal: Above high normal; Status: F Test: BLOOD, URINE BLOOD; Value: NEGATIVE; Range: NEGATIVE; Status: F Test: WBC, URINE AUTO; Value: 6; Range: 0-3; Abnormal: Above high normal; Units: /HPF; Status: F Test: RBC, URINE AUTO; Value: 1; Range: 0-3; Units: /HPF; Status: F Test: BACTERIA, URINE AUTO; Value: 1+; Range: NEGATIVE; Abnormal: Above high normal; Status: F Test: SQUAMOUS EPITHELIAL CELL UR AU; Value: 2; Range: 0-6; Units: /HPF; Status: F Test: MUCUS, URINE; Value: SMALL; Range: NEGATIVE; Status: F Test: HYALINE CAST, URINE AUTO; Value: 0; Range: 0-1; Units: /LPF; Status: F Lab Order: Urine Culture; SPEC'M 12/20/16 10:22 Test: URINE CULTURE; Value: <EXTERNAL COMMENT eCWMed> FULL REPORT IN LAB NOTES (eCW and Medent).; Status: F Test: URINE CULTURE; Value: URINE CULTURE RESULT SPECIMEN APPEARS CONTAMINATED; Status: F Lab Order: AMYLASE; SPEC'M 12/20/16 06:42 Test: AMYLASE; Value: 63; Range: 25-115; Units: U/L; Status: F Lab Order: LIPASE; SPEC'M 12/20/16 06:42 Test: LIPASE; Value: 137; Range: 73-393; Units: U/L; Status: F Outcome: 12:53 Discharge ordered by Provider. br1 13:16 Discharge Assessment: Patient awake, alert and oriented x 3. No cognitive and/or js13 functional deficits noted. Patient verbalized understanding of disposition instructions. patient administered narcotics - yes. Pt provided with safe discharge. The following High Risk Discharge criteria are identified: None. Discharged to home ambulatory. Condition: stable. Discharge instructions given to patient, Instructed on discharge instructions, follow up and referral plans. medication usage, Demonstrated understanding of instructions, medications, Pt was receptive of discharge instructions/ teaching. Prescriptions given X 2, Work note provided to patient. No special radiology studies were completed. Property :Personal belongings accompany Pt. 13:19 Patient left the ED. js13 Signatures: Siddhartha Morton, Reg Reg lg Gauri Hopkins,RN RN [email or web address] Rakesh Calvert MD MD br1 Sybil Guillen,ROSAURA RN ld5 Dominick Estradal1 Gauri Lomas,RN RN js13 Dany Johnson DO DO cs11 McLear, Afsaneh, TEMPER MILL ROLLER TEMPER MILL ROLLER tmm1 Izabela Lawrence RN RN Anais Davies Paul, Reg Reg pm4 Corrections: (The following items were deleted from the chart) 06:48 06:46 LIPASE+LAB sent. ld5 EDMS 06:48 06:46 AMYLASE+LAB sent. ld5 EDMS Chart Complete MTDD
--- NOTE | 2016-12-22 14:19 | EDDOCDS ---
Physician Documentation [facility] Name: Heidi Harrison Age: 26 yrs Sex: Female : 1990 Arrival Date: 12/20/2016 Time: 06:20 Bed 17 Private MD: Disposition: 12/20/16 12:53 Discharged to Home/Self Care. Impression: Mild hyperemesis gravidarum, Headache, Urinary tract infection, site not specified. - Condition is Stable. - Discharge Instructions: General Headache Without Cause, Hyperemesis Gravidarum, Urinary Tract Infection. - Prescriptions for ZOFRAN ODT 4 mg - dissolve 1 tablet by ORAL route 4 times per day As needed do not chew, do not swallow whole; 10 tablet. Macrobid 100 mg Oral Capsule - take 100 milligrams by ORAL route every 12 hours for 7 days; 14 capsule. - Medication Reconciliation, Local Pharmacy Hours, Work Release Form - 3 day form. - Follow up: [facility]; When: 2 - 3 days; Reason: Recheck today's complaints. - Problem is new. - Symptoms have improved. - Notes: You were seen in the ED for headache, nausea and vomiting. Bloodwork showed no acute findings. Urine tests showed bacteria which may be a sign of urinary tract infection. You were treated and improved with medications. As you are feeling better you may return home. Clal your [facility] doctor today to discuss the ED visit and arrange to be seen. take the antibiotics as written, tylenol as needed for pain and Zofran as needed for nausea. Return to the ED for any worsening or uncontrolled pain, fever, vision changes, or any other concerns. Historical: - Allergies: Imitrex (Hives); Maxalt (Hives); SULFA (SULFONAMIDES) (Unknown); - Home Meds: 1. Benadryl 25 mg Oral cap 2 caps as needed 2. melatonin 3 mg Oral tab nightly 3. Tylenol 500 mg Oral tab 2 tabs every 4 hours prn (Last dose: 12/19/2016 17:00) - PMHx: chronic abdominal pain; Irritable bowel syndrome; Migraine Headaches; - PSHx: Tonsillectomy; - Social history: Smoking status: Patient states former smoker of tobacco. No barriers to communication noted, The patient speaks fluent Chinese, Speaks appropriately for age. - Family history: Not pertinent. - : The pt / caregiver states he / she is not on anticoagulants. Home medication list is obtained from the patient. - Exposure Risk Screening:: None identified. FOOD CONCESSION MANAGER: 12/20 06:29 LMP 10/19/2016, Verified, EDC 07/26/2017, Gestational age from LMP: 8 weeks 6 ko2 days Vital Signs: 06:29 BP 140 / 85; Pulse 75; Resp 18; Temp 97.8(TE); Pulse Ox 99% ; Weight 88.45 kg / 195 ko2 lbs; Height 5 ft. 2 in. (157.48 cm); Pain 8/10; 08:32 BP 132 / 78; Pulse 68; Resp 14; Temp 98.0(O); Pulse Ox 98% on R/A; js13 10:50 BP 128 / 74; Pulse 72; Resp 14; Temp 98.5(O); Pulse Ox 97% on R/A; js13 11:20 Pain 3/10; js13 12:51 BP 114 / 69; Pulse 67; Resp 20; Temp 97.9; Pulse Ox 100% on R/A; Pain 2/10; tmm1 13:16 BP 112 / 70; Pulse 68; Resp 14; Temp 98.2(O); Pulse Ox 98% on R/A; Pain 2/10; js13 06:29 Body Mass Index 35.67 (88.45 kg, 157.48 cm) ko2 MDM: 06:44 IV Saline Lock ordered. cs11 06:44 NS 0.9% 1000 ml IV at bolus once ordered. cs11 06:44 Metoclopramide 10 mg IV at 40 mg/hr once over 15 mins ordered. cs11 06:44 diphenhydrAMINE 25 mg IVP once ordered. cs11 06:45 CBC with Diff Ordered. EDMS 06:45 MED Profile Ordered. EDMS 06:45 Liver Profile Ordered. EDMS 06:45 Urinalysis Ordered. EDMS 06:45 Urine Culture Ordered. EDMS 06:48 AMYLASE Ordered. EDMS 06:48 LIPASE Ordered. EDMS 07:43 Financial registration complete. lg 09:32 [facility] Payment Agreement was scanned into [employer] and attached to record. lg 10:47 CBC with Diff Reviewed. br1 10:47 MED Profile Reviewed. br1 10:47 Liver Profile Reviewed. br1 10:47 Urinalysis Reviewed. br1 10:47 AMYLASE Reviewed. br1 10:47 LIPASE Reviewed. br1 11:00 morphine 2 mg IVP once ordered. br1 11:24 Nitrofurantoin 100 mg PO once ordered. br1 14:25 T-Sheet-- Draft Copy was scanned into [employer] and attached to record. klr Administered Medications: 06:56 Drug: Metoclopramide 10 mg [metoclopramide 5 mg/mL injection solution] Route: IV; Rate: ld5 40 mg/hr; Infused Over: 15 mins; Site: left antecubital; 06:56 Drug: diphenhydrAMINE 25 mg [diphenhydramine 50 mg/mL injection solution (0.5 mL)] ld5 Route: IVP; Site: left antecubital; 06:57 Drug: NS 0.9% 1000 ml [sodium chloride 0.9 % intravenous solution] Route: IV; Rate: ld5 bolus; Site: left antecubital; 12:37 Follow up: IV Status: Completed infusion; IV Intake: 1000ml js13 11:03 Drug: morphine 2 mg [morphine 2 mg/mL intravenous cartridge (1 mL)] Route: IVP; Site: jo3 left antecubital; 11:20 Follow up: Pain 3/10 Adult; Response: Confirmed pt not driving.; Pain is decreased js13 12:03 Drug: Nitrofurantoin 100 mg [nitrofurantoin macrocrystal 50 mg capsule (2 caps)] Route: js13 PO; Signatures: Dispatcher [employer] EDMS Siddhartha Morton, Reg Reg lg Rakesh Calvert MD MD br1 Gauri Lomas,RN RN js13 Dany Johnson DO DO cs11 Izabela Lawrence RN RN ko2 Anais Whitney klr Gauri Hopkins RN3 Sybil Guillen RN ld5 The chart was reviewed and I authenticate all verbal orders and agree with the evaluation and treatment provided.Corrections: (The following items were deleted from the chart) 06:48 06:45 AMYLASE+LAB ordered. EDMS EDMS 06:48 06:45 LIPASE+LAB ordered. EDMS EDMS Attachments: 09:32 [facility] Payment Agreement lg 14:25 T-Sheet-- Draft Copy klr Chart Complete MTDD
--- NOTE | 2016-12-22 14:19 | EDDOCDS ---
Physician Documentation [facility] Name: Heidi Harrison Age: 26 yrs Sex: Female : 1990 Arrival Date: 12/20/2016 Time: 06:20 Bed 17 Private MD: Disposition: 12/20/16 12:53 Discharged to Home/Self Care. Impression: Mild hyperemesis gravidarum, Headache, Urinary tract infection, site not specified. - Condition is Stable. - Discharge Instructions: General Headache Without Cause, Hyperemesis Gravidarum, Urinary Tract Infection. - Prescriptions for ZOFRAN ODT 4 mg - dissolve 1 tablet by ORAL route 4 times per day As needed do not chew, do not swallow whole; 10 tablet. Macrobid 100 mg Oral Capsule - take 100 milligrams by ORAL route every 12 hours for 7 days; 14 capsule. - Medication Reconciliation, Local Pharmacy Hours, Work Release Form - 3 day form. - Follow up: [facility]; When: 2 - 3 days; Reason: Recheck today's complaints. - Problem is new. - Symptoms have improved. - Notes: You were seen in the ED for headache, nausea and vomiting. Bloodwork showed no acute findings. Urine tests showed bacteria which may be a sign of urinary tract infection. You were treated and improved with medications. As you are feeling better you may return home. Clal your [facility] doctor today to discuss the ED visit and arrange to be seen. take the antibiotics as written, tylenol as needed for pain and Zofran as needed for nausea. Return to the ED for any worsening or uncontrolled pain, fever, vision changes, or any other concerns. Historical: - Allergies: Imitrex (Hives); Maxalt (Hives); SULFA (SULFONAMIDES) (Unknown); - Home Meds: 1. Benadryl 25 mg Oral cap 2 caps as needed 2. melatonin 3 mg Oral tab nightly 3. Tylenol 500 mg Oral tab 2 tabs every 4 hours prn (Last dose: 12/19/2016 17:00) - PMHx: chronic abdominal pain; Irritable bowel syndrome; Migraine Headaches; - PSHx: Tonsillectomy; - Social history: Smoking status: Patient states former smoker of tobacco. No barriers to communication noted, The patient speaks fluent Belizean, Speaks appropriately for age. - Family history: Not pertinent. - : The pt / caregiver states he / she is not on anticoagulants. Home medication list is obtained from the patient. - Exposure Risk Screening:: None identified. APPLICATION DEVELOPMENT INTERN: 12/20 06:29 LMP 10/19/2016, Verified, EDC 07/26/2017, Gestational age from LMP: 8 weeks 6 ko2 days Vital Signs: 06:29 BP 140 / 85; Pulse 75; Resp 18; Temp 97.8(TE); Pulse Ox 99% ; Weight 88.45 kg / 195 ko2 lbs; Height 5 ft. 2 in. (157.48 cm); Pain 8/10; 08:32 BP 132 / 78; Pulse 68; Resp 14; Temp 98.0(O); Pulse Ox 98% on R/A; js13 10:50 BP 128 / 74; Pulse 72; Resp 14; Temp 98.5(O); Pulse Ox 97% on R/A; js13 11:20 Pain 3/10; js13 12:51 BP 114 / 69; Pulse 67; Resp 20; Temp 97.9; Pulse Ox 100% on R/A; Pain 2/10; tmm1 13:16 BP 112 / 70; Pulse 68; Resp 14; Temp 98.2(O); Pulse Ox 98% on R/A; Pain 2/10; js13 06:29 Body Mass Index 35.67 (88.45 kg, 157.48 cm) ko2 MDM: 06:44 IV Saline Lock ordered. cs11 06:44 NS 0.9% 1000 ml IV at bolus once ordered. cs11 06:44 Metoclopramide 10 mg IV at 40 mg/hr once over 15 mins ordered. cs11 06:44 diphenhydrAMINE 25 mg IVP once ordered. cs11 06:45 CBC with Diff Ordered. EDMS 06:45 MED Profile Ordered. EDMS 06:45 Liver Profile Ordered. EDMS 06:45 Urinalysis Ordered. EDMS 06:45 Urine Culture Ordered. EDMS 06:48 AMYLASE Ordered. EDMS 06:48 LIPASE Ordered. EDMS 07:43 Financial registration complete. lg 09:32 [facility] Payment Agreement was scanned into [employer] and attached to record. lg 10:47 CBC with Diff Reviewed. br1 10:47 MED Profile Reviewed. br1 10:47 Liver Profile Reviewed. br1 10:47 Urinalysis Reviewed. br1 10:47 AMYLASE Reviewed. br1 10:47 LIPASE Reviewed. br1 11:00 morphine 2 mg IVP once ordered. br1 11:24 Nitrofurantoin 100 mg PO once ordered. br1 14:25 T-Sheet-- Draft Copy was scanned into [employer] and attached to record. klr Administered Medications: 06:56 Drug: Metoclopramide 10 mg [metoclopramide 5 mg/mL injection solution] Route: IV; Rate: ld5 40 mg/hr; Infused Over: 15 mins; Site: left antecubital; 06:56 Drug: diphenhydrAMINE 25 mg [diphenhydramine 50 mg/mL injection solution (0.5 mL)] ld5 Route: IVP; Site: left antecubital; 06:57 Drug: NS 0.9% 1000 ml [sodium chloride 0.9 % intravenous solution] Route: IV; Rate: ld5 bolus; Site: left antecubital; 12:37 Follow up: IV Status: Completed infusion; IV Intake: 1000ml js13 11:03 Drug: morphine 2 mg [morphine 2 mg/mL intravenous cartridge (1 mL)] Route: IVP; Site: jo3 left antecubital; 11:20 Follow up: Pain 3/10 Adult; Response: Confirmed pt not driving.; Pain is decreased js13 12:03 Drug: Nitrofurantoin 100 mg [nitrofurantoin macrocrystal 50 mg capsule (2 caps)] Route: js13 PO; Signatures: Dispatcher [employer] EDMS Siddhartha Morton, Reg Reg lg Rakesh Calvert MD MD br1 Gauri Lomas,RN RN js13 Dany Johnson DO DO cs11 Izabela Lawrence RN RN ko2 Anais Whitney klr Gauri Hopkins RN3 Sybil Guillen RN ld5 The chart was reviewed and I authenticate all verbal orders and agree with the evaluation and treatment provided.Corrections: (The following items were deleted from the chart) 06:48 06:45 AMYLASE+LAB ordered. EDMS EDMS 06:48 06:45 LIPASE+LAB ordered. EDMS EDMS Attachments: 09:32 [facility] Payment Agreement lg 14:25 T-Sheet-- Draft Copy klr Chart Complete MTDD
== END 2016-12-20 13:19 | disposition home or self-care (01) ==
LOC: M ED 06:20
DX: O21.1 Hyperemesis gravidarum with metabolic disturbance (principal); O99.89 Other specified diseases and conditions complicating pregnancy, childbirth and the puerperium; R51 Headache; O23.41 Unspecified infection of urinary tract in pregnancy, first trimester; O99.611 Diseases of the digestive system complicating pregnancy, first trimester; Z3A.08 8 weeks gestation of pregnancy; Z87.891 Personal history of nicotine dependence; Z79.899 Other long term (current) drug therapy; Z88.2 Allergy status to sulfonamides; Z88.8 Allergy status to other drugs, medicaments and biological substances
CPT/HCPCS: 36415; 80048; 80076; 81001; 82150; 83690; 85025; 87086; 96361; 96374; 96375; 99284; J1200; J2765

== ENCOUNTER 2017-03-09 12:53 | Emergency (ER) | payer OTHER ==
[~2017-03-09] VITALS: Ht 157.5 cm; Wt 87.1 kg
[2017-03-09] MEDS ORDERED: CAFF200T PO (13:00)
[2017-03-09] MEDS ORDERED: BENA25CA4 PO (13:00)
[2017-03-09] MEDS ORDERED: PREN1TAB18 PO (13:00)
[2017-03-09] MEDS ORDERED: APAP325T PO (13:00)
[2017-03-09] MEDS ORDERED: diphenhydrAMINE INJ 50MG/ML VIAL (J1200) IV ONE (13:30)
[2017-03-09] MEDS ORDERED: METOCLOPRAMIDE INJ 10MG/2ML VIAL (J2765) IV ONE (13:30)
[2017-03-09] MEDS ORDERED: NS 1,000 ML IV ONE (13:30)
[2017-03-09 13:55] LABS: BASO % 0.2 % (0.0-1.0); EOS # 0.3 K/mm3 (0.0-0.50); EOS % 3.3 % (0.0-3.0); LARGE UNSTAINED CELL # 0.1 K/mm3 (0.0-0.4); LARGE UNSTAINED CELL % 1.4 % (0.0-4.0); LYMPH # 1.4 K/mm3 (1.5-6.5); LYMPH % 17.6 % (24.0-44.0); MEAN CORPUSCULAR HEMOGLOBIN 29.7 pg (27.0-33.0); MEAN CORPUSCULAR HGB CONC 33.7 g/dl (32.0-36.5); MONO # 0.3 K/mm3 (0.0-0.8); MONO % 3.8 % (0.0-5.0); NEUTROPHILS # 5.7 K/mm3 (1.8-7.7); NEUTROPHILS % 73.6 % (36.0-66.0); PLATELET COUNT, AUTOMATED 253 k/mm3 (150-450); RED CELL DISTRIBUTION WIDTH 12.9 % (11.5-14.5); WHITE BLOOD COUNT 7.8 K/mm3 (4.0-10.0)
[2017-03-09 14:18] LABS: ALBUMIN/GLOBULIN RATIO 0.79 (1.00-1.93); ALKALINE PHOSPHATASE 38 U/L (45-117); ALT/SGPT 15 U/L (12-78); ANION GAP 12 MEQ/L (8-16); AST/SGOT 11 U/L (15-37); BILIRUBIN,DIRECT < 0.1 MG/DL (0.0-0.2); BILIRUBIN,TOTAL 0.1 MG/DL (0.2-1.0); BLOOD UREA NITROGEN 9 MG/DL (7-18); CALCIUM LEVEL 8.3 MG/DL (8.5-10.1); CARBON DIOXIDE LEVEL 20 MEQ/L (21-32); CHLORIDE LEVEL 105 MEQ/L (98-107); CREATININE FOR GFR 0.49 MG/DL (0.55-1.02); GLOMERULAR FILTRATION RATE > 60.0 (>60); GLUCOSE, FASTING 98 MG/DL (70-105); MAGNESIUM LEVEL 1.9 MG/DL (1.8-2.4); POTASSIUM SERUM 3.6 MEQ/L (3.5-5.1); SODIUM LEVEL 137 MEQ/L (136-145); TOTAL PROTEIN 6.8 GM/DL (6.4-8.2); URIC ACID 3.2 MG/DL (2.6-6.0)
[2017-03-09 15:08] VITALS: BP 130/70
== END 2017-03-09 15:21 | disposition home or self-care (01) ==
LOC: M ED 13:41
DX: G40.909 Epilepsy, unspecified, not intractable, without status epilepticus (principal)
CPT/HCPCS: 80048; 80076; 81001; 83735; 84550; 85025; 87086; 96361; 96374; 96375; 99283; J1200; J2765

== ENCOUNTER 2017-04-03 10:12 | Inpatient (IN) | payer OTHER ==
[~2017-04-03] VITALS: Ht 157.5 cm; Wt 85.5 kg
[~2017-04-03 10:12] MED LIST: APAP325T PO; BENA25CA4 PO; CAFF200T PO; PREN1TAB18 PO
[2017-04-03 11:39] LABS: MEAN CORPUSCULAR HEMOGLOBIN 29.8 pg (27.0-33.0); MEAN CORPUSCULAR HGB CONC 33.4 g/dl (32.0-36.5); MEAN CORPUSCULAR VOLUME 89.1 fl (80.0-96.0); WHITE BLOOD COUNT 8.2 K/mm3 (4.0-10.0)
[2017-04-03] MEDS ORDERED: ACETAMINOPHEN TAB 650MG DOSE (2X325MG) PO ONE (12:00)
[2017-04-03 12:22] LABS: ALBUMIN 3.3 GM/DL (3.2-5.2); ALBUMIN/GLOBULIN RATIO 0.83 (1.00-1.93); ALKALINE PHOSPHATASE 50 U/L (45-117); ALT/SGPT 17 U/L (12-78); ANION GAP 10 MEQ/L (8-16); AST/SGOT 13 U/L (15-37); BILIRUBIN,DIRECT < 0.1 MG/DL (0.0-0.2); BILIRUBIN,TOTAL 0.2 MG/DL (0.2-1.0); BLOOD UREA NITROGEN 7 MG/DL (7-18); CALCIUM LEVEL 9.4 MG/DL (8.5-10.1); CARBON DIOXIDE LEVEL 20 MEQ/L (21-32); CHLORIDE LEVEL 107 MEQ/L (98-107); CREATININE FOR GFR 0.48 MG/DL (0.55-1.02); GLOMERULAR FILTRATION RATE > 60.0 (>60); GLUCOSE, FASTING 85 MG/DL (70-105); POTASSIUM SERUM 3.9 MEQ/L (3.5-5.1); SODIUM LEVEL 137 MEQ/L (136-145); TOTAL PROTEIN 7.3 GM/DL (6.4-8.2)
[2017-04-03 13:00] LABS: METHADONE URINE NEGATIVE (NEGATIVE)
[2017-04-03] MEDS ORDERED: MELA0.02 PO (13:57)
[2017-04-03] MEDS ORDERED: METOCLOPRAMIDE 10 MG TAB PO ONE (14:15)
--- NOTE | 2017-04-03 15:28 | ED PDOC ---
Post-Departure Follow-Up patient c/o abdominal cramping - no VB, no ROM, +FM - d/w Jacqueline Harrison [place] supervisor metal cans regarding ?monitoring - given gestation no need currently for monitoring if symptoms worsen then would consider Mary Chen MD April 03, 2017 15:28
[2017-04-03 16:50] VITALS: BP 138/74
[2017-04-03] MEDS ORDERED: ACETAMINOPHEN TAB 650MG DOSE (2X325MG) PO PRN (18:15)
[2017-04-03] MEDS ORDERED: diphenhydrAMINE 25 MG CAP PO ONE (22:30)
[2017-04-04 06:22] VITALS: BP 119/59
[2017-04-04] MEDS ORDERED: PRENATAL VITAMIN TAB PO SCH (09:00)
--- NOTE | 2017-04-04 09:13 | HPEPDOC ---
Medical History and Physical Date of Admission April 03, 2017 at 13:40 History and Physical PCP: Estephania PROPERTY SUPERVISOR. [facility]. ATTENDING: Dr. Radames Temple HPI: 26yoF admitted to [facility] for unspecified depressive disorder, being medically examined today. Pt is reluctant to provide history. The pt is currently 22 weeks . Her next appointment with her OB provider as scheduled 04/09/17. States she does not have any abdominal/pelvic pain today, but later she states she does have cramping upper abdomen, this is unchanged from ED yesterday. Her OB provider was contacted from the ED yesterday. FHR in ED 147. Denies any fevers, chills, weakness, fatigue, RUIZ, CP, SOB, cough, palpitations, abdominal pain, N/V/D or changes in bowel or bladder habits. PMHx: Chronic headaches. Follows with [facility]. IBS Insomnia PSHX: Colonoscopy 10/20. [facility]. Internal hemorrhoids. EGD 10/20. [facility]. Small hiatal hernia. SOCHX: Resides in: [place] Marital Status: Kids: 3 Employment: Unemployed Tobacco use: Denies ETOH: Denies Illicit Drugs: Denies IV Drug Use: Denies Tattoos done unprofessionally: Denies FAMHX: Mother: Alive, well Father: Alive, well Siblings: Alive, well Children: Alive, well Unexpected deaths due to medical reasons: None. ROS: As noted in HPI, otherwise 11pt ROS of systems reviewed and remarkable for intermittent RUIZ used fioricet in past. Currently 22 weeks . PE: GEN: 26yoF, appears stated age. Well-nourished, well developed. No acute distress. Alert and oriented x 3. Affect flat, avoids eye contact, agitated. HEENT: Normocephalic, atraumatic. Pupils are equal, round, and reactive to light. Extraocular movements are intact. No nystagmus appreciated. Sclera are nonicteric. Conjunctiva without injection. Nose midline. Nasal turbinates without bogginess. EACs both patent BL. TMs both visualized and walsh with good cone of light, no bulging or erythema. No facial asymmetry. Moist mucous membranes. Dentition fair. Pharynx pink and moist, no cobblestoning. Neck supple , trachea midline. No lymphadenopathy or thyromegaly appreciated. CHEST: Regular rate and rhythm, +S1, +S2 LUNGS: Clear to auscultation bilaterally. No wheezes, rales, or rhonchi. Breathing appears symmetric and easy. Patient is speaking in full sentences. No accessory muscle use. ABD: Round, soft, mild RUQ TTP, non-distended. +Bowel sounds throughout. No rebound or guarding. No costovertebral angle tenderness. EXT: Pulses 2+ bilaterally dorsalis pedis and radial. No lower extremity edema appreciated. SKIN: Merna, dry, warm. Capillary refill <2sec. No rashes. NEURO: Alert and oriented x 3. Cranial nerves III-XII are intact. No focal deficits appreciated. EKG: pending. Post-Departure Follow-Up Note Dr Degroot. patient c/o abdominal cramping - no VB, no ROM, +FM - d/w Jacqueline Walsh camper assembler regarding ?monitoring - given gestation no need currently for monitoring if symptoms worsen then would consider A&P: 26yoF admitted to [facility] for unspecified depressive disorder, being medically examined today. 1. Psych. Plan per Psychiatry. Obtain baseline EKG to assure the safety of psychiatric medications as they can prolong the QT interval. 2. . Currently 22 weeks . Following with [facility]. Her provider was contacted from the emergency department yesterday with no further recommendations or requests. Add on hCG quantitative. Check OB U/S since she is still reporting pain. Continue vitamin. Patient has appointment scheduled with her provider 04/09/17. 3. Chronic RUIZ. Continue Tylenol as needed. Continue outpatient follow-up with neurology. 4. Follow up with PCP on discharge. 5. Lavern KAPLAN present throughout exam. Vital Signs Vital Signs Date Time Temp Pulse Resp B/P (MAP) Pulse Ox O2 Delivery O2 Flow Rate FiO2 04/04/17 06:22 97.6 84 18 119/59 (79) 04/03/17 16:13 100 04/03/17 10:13 Room Air Laboratory Data Labs 24H Laboratory Tests 2 04/03/17 11:27: Anion Gap 10, Glomerular Filtration Rate > 60.0, Calcium Level 9.4, Aspartate Amino Transf (AST/SGOT) 13L, Alanine Aminotransferase (ALT/SGPT) 17, Alkaline Phosphatase 50, Total Bilirubin 0.2, Direct Bilirubin < 0.1, Total Protein 7.3, Albumin 3.3, Albumin/Globulin Ratio 0.83L, Thyroid Stimulating Hormone (TSH) 1.340, Salicylates Level < 1.7L, Urine Amphetamines Screen NEGATIVE, Urine Benzodiazepines Screen NEGATIVE, Urine Opiates Screen NEGATIVE, Urine Methadone Screen NEGATIVE, Acetaminophen Level 4.0L, Urine Barbiturates Screen NEGATIVE, Urine Phencyclidine Screen NEGATIVE, Urine Cocaine Metabolite Screen NEGATIVE, Urine Cannabinoids Screen NEGATIVE, Ethyl Alcohol Level < 0.003 CBC/BMP Laboratory Tests 04/03/17 11:27 Red Blood Count 4.40, Mean Corpuscular Volume 89.1, Mean Corpuscular Hemoglobin 29.8, Mean Corpuscular Hemoglobin Concent 33.4, Red Cell Distribution Width 13.0 Home Medications Scheduled ( Vitamin/Iron 28-0.8 mg) 1 Tab Tab, 1 TAB PO QPM (Melatonin) 3 Mg Tab, 3 MG PO QHS Scheduled PRN Acetaminophen (Apap) 325 Mg Tab, 650 MG PO PRN PRN for HEADACHE Caffeine (Caffeine) 200 Mg Tab, 200 MG PO PRN PRN for HEADACHE Diphenhydramine HCl (Benadryl Allergy) 25 Mg Cap, 25 MG PO PRN PRN for INSOMNIA Allergies Coded Allergies: Rizatriptan (Verified Allergy, Unknown, 03/09/17) Sulfa Antibiotics (Unverified Allergy, Unknown, 06/12/16) Sumatriptan (Unverified Allergy, Unknown, HIVES, 06/12/16) Angie Bowser April 04, 2017 09:13
[2017-04-04 10:13] LABS: HCG, SERUM QUANTITATIVE 20489 MIU/ML
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
[2017-04-04] MEDS ORDERED: VIST50CA PO (15:29)
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
--- NOTE | 2017-04-04 21:26 | REP ---
Clinical: Anatomical evaluation. Comparison: 02/05/2017 . Findings: Examination demonstrates a single live intrauterine in breech presentation. motion is identified by technologist. Placenta is noted a anteriorly and grade one without evidence for placenta previa or abruption. Amniotic fluid volume is normal. Cervix measures 3.8 cm in length and appears closed. No evidence for nuchal cord. Gestational age by LMP 22 weeks 3 days with KAYKAY 08/05/2017 . Gestational age by current measurements 23 weeks 2 days with KAYKAY 07/30/2017 . FHR equals 139 beats per minute. BPD 5.7 cm 23 weeks 2 days HC 21.3 cm 23 weeks 3 days AC 17.5 cm 22 weeks 3 days FL 4.0 cm 23 weeks 0 days HL 4.1 cm 24 weeks 4 days HC/AC ratio 1.22 Estimated weight 533 grams ( 57th percentile). Anatomical assessment demonstrates normal structures including cranium, choroid plexus, cavum, cerebellum/posterior fossa, facial features, lungs, diaphragm, stomach, cord insertion/three-vessel cord, kidneys/bladder, spine, and extremities. Impression: Single live intrauterine in breech presentation demonstrating appropriate interval growth. Limited evaluation of the heart and ventricular outflow tracts. Remainder of the anatomical assessment is complete and normal. Signed by Nikhil Spann MD 04/04/2017 09:17 P
== END 2017-04-04 16:00 | disposition home or self-care (01) | DRG 781 ==
LOC: M ED 11:28 → M ED INP 13:40 → M PSY 16:38
PROVIDERS: ADMIT Psychiatry & Neurology Psychiatry; ATTEND Psychiatry & Neurology Psychiatry
DX: O99.342 Other mental disorders complicating pregnancy, second trimester (principal); F43.21 Adjustment disorder with depressed mood; G47.00 Insomnia, unspecified; O99.352 Diseases of the nervous system complicating pregnancy, second trimester; R51 Headache; Z3A.23 23 weeks gestation of pregnancy; Z79.899 Other long term (current) drug therapy; Z88.2 Allergy status to sulfonamides; Z88.8 Allergy status to other drugs, medicaments and biological substances

== ENCOUNTER 2017-07-16 21:49 | Inpatient (IN) | payer OTHER ==
[~2017-07-16] VITALS: Ht 157.5 cm; Wt 85.0 kg
[~2017-07-16 21:49] MED LIST changes: -APAP325T PO; +APAP325T4 PO; +MELA3TAB49 PO; +VIST50CA PO
[2017-07-16 21:59] VITALS: BP 136/97
[2017-07-16 22:18] VITALS: BP 139/90
[2017-07-16 22:31] VITALS: BP 135/90
[2017-07-16] MEDS ORDERED: ZOFR20TA PO (22:43)
[2017-07-16] MEDS ORDERED: ACET50TA PO (22:43)
[2017-07-16] MEDS ORDERED: LEVO50TA5 PO (22:43)
[2017-07-16 22:46] VITALS: BP 130/94
[2017-07-16] MEDS ORDERED: LACTATED RINGER'S 1000 ML IV STA (23:09)
[2017-07-16] MEDS ORDERED: PENICILLIN G POTASSIUM IV 5 MU in D5W MINI-BAG PLUS 100 ML IV STA (23:09)
[2017-07-16] MEDS ORDERED: LR 1,000 ML IV SCH (23:09)
[2017-07-16] MEDS ORDERED: OXYTOCIN DRIP 30 UNITS in APPROPRIATE DILUENT 1 EA IV SCH (23:30)
[2017-07-16 23:35] VITALS: BP 169/107
[2017-07-16] MEDS ORDERED: ONDANSETRON 4MG/2ML VIAL (J2405) IV ONE (23:45)
[2017-07-16 23:48] VITALS: BP 143/90
[2017-07-17] VITALS (33 sets, daily range): BP systolic 119–203; BP diastolic 56–112
[2017-07-17 00:21] LABS: MEAN CORPUSCULAR HEMOGLOBIN 28.7 pg (27.0-33.0); MEAN CORPUSCULAR VOLUME 84.5 fl (80.0-96.0); RED CELL DISTRIBUTION WIDTH 13.2 % (11.5-14.5); WHITE BLOOD COUNT 4.8 K/mm3 (4.0-10.0)
[2017-07-17 00:41] LABS: ALT/SGPT 25 U/L (12-78); AST/SGOT 38 U/L (15-37); BILIRUBIN,TOTAL 0.3 MG/DL (0.2-1.0); CREATININE FOR GFR 0.64 MG/DL (0.55-1.02); GLOMERULAR FILTRATION RATE > 60.0 (>60); URIC ACID 4.5 MG/DL (2.6-6.0)
[2017-07-17 00:51] LABS: CONTROL LINE INT CTR LINE PRESENT; HIV SCRN NEGATIVE (NEGATIVE); HIV SCRN1 NEGATIVE (NEGATIVE)
[2017-07-17] MEDS: PENICILLIN G POTASSIUM IV 2.5 MU in D5W 100 ML IV SCH ×2 (04:10→09:02)
[2017-07-17] MEDS ORDERED: FENTANYL 2MCG/ML ROPIVACAINE 0.2% IN 0.9% NACL 200ML IVBAG As Ordered ONE (08:10)
[2017-07-17] MEDS ORDERED: EPIDURAL/PCA KEYS XX PRN (09:00)
[2017-07-17] MEDS ORDERED: ONDANSETRON 4MG/2ML VIAL (J2405) IV PRN (09:00)
[2017-07-17] MEDS ORDERED: EPIDURAL COMMENT XX SCH (09:00)
[2017-07-17] MEDS ORDERED: FENTANYL/ROPIVACAINE/NACL BAG 200 ML EPIDURAL SCH (09:00)
[2017-07-17] MEDS ORDERED: ePHEDrine SULFATE 25 MG/5 ML(5MG/ML) SYRINGE IV PRN (09:00)
[2017-07-17] MEDS ORDERED: NALOXONE INJ 0.4 MG/1 ML VIAL (J2310) IV PRN (09:00)
[2017-07-17] MEDS ORDERED: LACTATED RINGER'S 1000 ML IV PRN (09:00)
[2017-07-17] MEDS ORDERED: diphenhydrAMINE INJ 50MG/ML VIAL (J1200) IV PRN (09:00)
[2017-07-17] MEDS ORDERED: REFRIGERATOR IV KEYS XX PRN (09:00)
[2017-07-17] MEDS ORDERED: OXYTOCIN DRIP 30 UNITS in APPROPRIATE DILUENT 1 EA IV SCH (09:31)
[2017-07-17 09:42] LABS: CORD GAS ABE A -4.5; CORD GAS ABE V -4.8; CORD GAS HCO3 A 23.2 MEQ/L; CORD GAS HCO3 V 20.6 MEQ/L; CORD GAS O2 SAT A 49.8 %; CORD GAS O2 SAT V 74.5 %; CORD GAS PCO2 A 53.3 mmHg; CORD GAS PCO2 V 39.2 mmHg; CORD GAS PH A 7.257 UNITS; CORD GAS PH V 7.338 UNITS; CORD GAS PO2 A 22.8 mmHg; CORD GAS PO2 V 32.7 mmHg; CORD GAS SBC A 19.7 MEQ/L; CORD GAS SBC V 20.1 MEQ/L; CORD GAS TCO2 A 24.9 MEQ/L; CORD GAS TCO2 V 21.8 MEQ/L
[2017-07-17] MEDS ORDERED: OXYTOCIN INJ 10 UNITS/ML VIAL (J2590) IM ONE (09:45)
[2017-07-17] MEDS ORDERED: DIBUCAINE 1% OINTMENT 30GM TOP PRN (09:45)
[2017-07-17] MEDS ORDERED: MEASLES,MUMPS,RUBELLA VACCINE INJ (MMR-II) (90707) SC SCH (09:45)
[2017-07-17] MEDS ORDERED: DOCUSATE SODIUM 100 MG CAP PO PRN (09:45)
[2017-07-17] MEDS ORDERED: ANUSOL HC CREAM 30GM TOP PRN (09:45)
[2017-07-17] MEDS ORDERED: RHOGAM 300 MCG (1500 IU) INJ (J2790) IM SCH (09:45)
--- NOTE | 2017-07-17 09:53 | DN ---
DATE OF DELIVERY: 07/17/2017 Heidi is a 26-year-old 6, para 4-0-2-4 now who was admitted to labor and delivery for induction of labor due to gestational hypertension, A1 gestational diabetes and term . IV Pitocin was started and labor did ensue. She did utilize an epidural for her labor coping. She progressed to full dilation and 0903. She pushed to a normal spontaneous vaginal delivery of a live female in ISIDRO position which restituted to direct OP position at 0908. There was no nuchal cord. The shoulders delivered spontaneously and the corpus immediately followed. The was placed on the maternal abdomen crying and active. Her mouth and nares were bulb suctioned and she was stimulated. Cord gases and cord blood were obtained. A spontaneous expulsion of an intact placenta with three-vessel cord by Bahena mechanism was at 0913. Uterine hemostasis was achieved with IV Pitocin rapid infusion, IM Pitocin 10 units and uterine fundal massage. The bladder was straight cath and drained of approximately 300 mL of yellow urine. Estimated blood loss 450 mL. The perineum and vagina were inspected noted to be intact. There was no need for any repair. The female weighed 7 pounds 4 ounces, 3276 grams and 9 and 10. The mom plans to breast feed and the family have named their daughter Kasey. At the close of delivery, needle counts, instrument counts and lap counts were correct and verified.
[2017-07-17] MEDS: IBUPROFEN 800 MG TAB PO PRN ×2 (12:37→20:04)
[2017-07-17] MEDS: ACETAMINOPHEN 500 MG TAB PO PRN (17:42)
[2017-07-17] MEDS: ONDANSETRON 4MG/2ML VIAL (J2405) IV SCH (20:03)
[2017-07-18] MEDS: ONDANSETRON 4MG/2ML VIAL (J2405) IV SCH ×4 (01:30→21:38)
[2017-07-18] MEDS: ACETAMINOPHEN 500 MG TAB PO PRN ×3 (01:53→21:38)
[2017-07-18 05:43] VITALS: BP 138/103
[2017-07-18 07:05] LABS: MEAN CORPUSCULAR HEMOGLOBIN 28.9 pg (27.0-33.0); MEAN CORPUSCULAR HGB CONC 34.7 g/dl (32.0-36.5); MEAN CORPUSCULAR VOLUME 83.2 fl (80.0-96.0); RED CELL DISTRIBUTION WIDTH 13.2 % (11.5-14.5); WHITE BLOOD COUNT 6.1 K/mm3 (4.0-10.0)
[2017-07-18 07:34] LABS: ALT/SGPT 18 U/L (12-78); AST/SGOT 26 U/L (15-37); BILIRUBIN,TOTAL 0.2 MG/DL (0.2-1.0); CREATININE FOR GFR 0.52 MG/DL (0.55-1.02); GLOMERULAR FILTRATION RATE > 60.0 (>60); URIC ACID 4.4 MG/DL (2.6-6.0)
[2017-07-18] MEDS ORDERED: INFLUENZA QUADRIVALENT PF VACCINE 0.5ML SYRINGE (90686) IM ONE (09:00)
[2017-07-18] MEDS: PRENATAL VITAMINS CHEWABLE TABLET PO SCH (09:06)
[2017-07-18 10:23] VITALS: BP 143/95
[2017-07-18] MEDS: IBUPROFEN 800 MG TAB PO PRN ×2 (11:00→18:30)
[2017-07-18 14:00] VITALS: BP 144/89
[2017-07-18 18:00] VITALS: BP 139/96
[2017-07-18 22:00] VITALS: BP_SYST 128; BP_SYST 142; BP_DIAS 72; BP_DIAS 90
[2017-07-18] MEDS ORDERED: ACETAMINOPHEN 500 MG TAB PO ONE (22:30)
[2017-07-19] MEDS: ONDANSETRON 4MG/2ML VIAL (J2405) IV SCH ×2 (01:30→07:28)
[2017-07-19 02:15] VITALS: BP 140/100
[2017-07-19 02:50] VITALS: BP 144/98
[2017-07-19] MEDS: IBUPROFEN 800 MG TAB PO PRN (02:56)
[2017-07-19 06:00] VITALS: BP 139/67
[2017-07-19] MEDS: PRENATAL VITAMINS CHEWABLE TABLET PO SCH (08:10)
[2017-07-19] MEDS ORDERED: ACET50TA PO (08:23)
[2017-07-19] MEDS ORDERED: IBUP-1114 PO (08:23)
[2017-07-19] MEDS ORDERED: PRENTAB9 PO (08:23)
[2017-07-19 10:00] VITALS: BP 154/88
== END 2017-07-19 11:41 | disposition home or self-care (01) | DRG 775 ==
LOC: M LDO 21:49 → M LDI 23:11 → M OBS 07-17 11:57
PROVIDERS: ADMIT Obstetrics & Gynecology; ATTEND Obstetrics & Gynecology
PROC: 10E0XZZ Delivery of Products of Conception, External Approach (ICD-10-PCS; principal; 2017-07-17)
PROC: 10907ZC Drainage of Amniotic Fluid, Therapeutic from Products of Conception, Via Natural or Artificial Opening (ICD-10-PCS; 2017-07-17)
DX: O13.4 Gestational [pregnancy-induced] hypertension without significant proteinuria, complicating childbirth (principal); Z37.0 Single live birth; Z3A.37 37 weeks gestation of pregnancy; O24.429 Gestational diabetes mellitus in childbirth, unspecified control; O21.2 Late vomiting of pregnancy; Z79.899 Other long term (current) drug therapy

== ENCOUNTER 2017-08-11 07:39 | Emergency (ER) | payer OTHER ==
[~2017-08-11] VITALS: Ht 157.5 cm; Wt 89.1 kg
[~2017-08-11 07:39] MED LIST changes: +ACET50TA PO; +IBUP-1114 PO; +LEVO50TA5 PO; +PRENTAB9 PO; +ZOFR20TA PO
[2017-08-11] MEDS ORDERED: MUCI600T37 PO (07:48)
[2017-08-11] MEDS ORDERED: BENA25CA4 PO (07:48)
[2017-08-11] MEDS ORDERED: ULTR50TA8 PO (07:58)
[2017-08-11] MEDS ORDERED: AUGM875T28 PO (07:58)
[2017-08-11] MEDS ORDERED: AUGMENTIN 875 MG TAB PO ONE (08:00)
[2017-08-11 08:30] VITALS: BP 160/118
== END 2017-08-11 08:40 | disposition home or self-care (01) ==
LOC: M ED 07:39
DX: J32.9 Chronic sinusitis, unspecified (principal); J06.9 Acute upper respiratory infection, unspecified; E07.9 Disorder of thyroid, unspecified; J30.9 Allergic rhinitis, unspecified; Z79.899 Other long term (current) drug therapy; Z88.1 Allergy status to other antibiotic agents; Z88.2 Allergy status to sulfonamides; Z88.8 Allergy status to other drugs, medicaments and biological substances

== ENCOUNTER → 2017-09-12 | Outpatient (REF) | payer OTHER ==
[~2017-09-12] MED LIST changes: +AUGM875T28 PO; +MUCI600T37 PO; +ULTR50TA8 PO
== END ==
LOC: M SFHCLERA 14:04
PROVIDERS: ATTEND Nurse Practitioner Family
DX: M54.9 Dorsalgia, unspecified (principal)

== ENCOUNTER 2017-09-23 08:51 | Emergency (ER) | payer OTHER ==
[~2017-09-23] VITALS: Ht 157.5 cm; Wt 83.2 kg
[2017-09-23] MEDS ORDERED: NORA0.35 (09:02)
[2017-09-23] MEDS ORDERED: TYLE500T78 PO (09:02)
[2017-09-23] MEDS ORDERED: BACL10TA2 (09:02)
[2017-09-23] MEDS ORDERED: IBUP-1114 PO (09:02)
[2017-09-23] MEDS ORDERED: AMOX500C PO (09:21)
[2017-09-23] MEDS ORDERED: NORCOTAB PO (09:21)
[2017-09-23] MEDS ORDERED: AMOXICILLIN 500 MG CAP PO ONE (09:30)
[2017-09-23] MEDS ORDERED: NORCO, ANEXSIA 5/325MG TABLET (HYDROcodone/ACETAMINOPHEN) PO ONE (09:30)
[2017-09-23 09:43] VITALS: BP 155/115
== END 2017-09-23 09:46 | disposition home or self-care (01) ==
LOC: M ED 08:51
DX: M54.5 Low back pain (principal); G89.29 Other chronic pain; K01.1 Impacted teeth

== ENCOUNTER 2018-01-16 18:38 | Emergency (ER) | payer OTHER ==
[2018-01-16] MEDS: diphenhydrAMINE INJ 50MG/ML VIAL (J1200) IV (22:20)
[2018-01-16] MEDS: KETOROLAC 30 MG/ML VIAL (J1885) IV (22:21)
[2018-01-16] MEDS: NS 1,000 ML IV (22:21)
[2018-01-16] MEDS: METOCLOPRAMIDE INJ 10MG/2ML VIAL (J2765) IV (22:21)
[2018-01-16] MEDS: MAGIC MOUTHWASH SUSPENSION BTL SSP (22:39)
== END 2018-01-16 22:59 | disposition home or self-care (01) ==
LOC: M ED 18:38
DX: G43.909 Migraine, unspecified, not intractable, without status migrainosus (principal); I10 Essential (primary) hypertension; K58.9 Irritable bowel syndrome, unspecified; E28.2 Polycystic ovarian syndrome; Z79.899 Other long term (current) drug therapy; Z88.1 Allergy status to other antibiotic agents; Z88.2 Allergy status to sulfonamides; Z88.8 Allergy status to other drugs, medicaments and biological substances
CPT/HCPCS: J1200

== ENCOUNTER 2018-01-30 08:50 | Day surgery (SDC) | payer OTHER ==
[2018-01-30 09:23] LABS: HEMATOCRIT 38.9 % (36.0-47.0); HEMOGLOBIN 13.4 g/dl (12.0-16.0)
[2018-01-30] MEDS: LR 1,000 ML IV (09:46)
[2018-01-30 09:51] LABS: CONTROL LINE HCG INT CTR LINE PRESENT; HCG, SERUM QUALITATIVE NEGATIVE (NEGATIVE)
[2018-01-30] MEDS ORDERED: PROPOFOL 200 MG/20 ML VIAL As Ordered (09:53)
[2018-01-30] MEDS ORDERED: ROCURONIUM BROMIDE 50 MG/5 ML VIAL As Ordered (09:53)
[2018-01-30] MEDS ORDERED: LIDOCAINE 2% INJ 100 MG/5 ML SDV (FOR ANES.) As Ordered (09:54)
[2018-01-30] MEDS ORDERED: ONDANSETRON 4MG/2ML VIAL (J2405) As Ordered (10:03)
[2018-01-30] MEDS ORDERED: KETOROLAC 60 MG/2 ML VIAL (J1885) As Ordered (10:03)
[2018-01-30] MEDS ORDERED: NEOSTIGMINE 10 MG/10 ML VIAL (J2710) As Ordered ×2 (10:06→12:23)
[2018-01-30] MEDS ORDERED: GLYCOPYRROLATE INJ 0.2 MG/ML 2 ML VIAL As Ordered (10:06)
[2018-01-30] MEDS ORDERED: fentaNYL 100 MCG/2 ML INJECTION (J3010) As Ordered (10:19)
[2018-01-30] MEDS ORDERED: MIDAZOLAM INJ 2 MG/2 ML VIAL (J2250) As Ordered (10:19)
[2018-01-30] MEDS: BUPIVACAINE HCL 0.25% 30 ML VIAL As Ordered (12:45)
[2018-01-30] MEDS ORDERED: METOCLOPRAMIDE INJ 10MG/2ML VIAL (J2765) IV (13:15)
[2018-01-30] MEDS ORDERED: fentaNYL 100 MCG/2 ML INJECTION (J3010) IV (13:15)
[2018-01-30] MEDS ORDERED: ONDANSETRON 4MG/2ML VIAL (J2405) IV (13:15)
[2018-01-30] MEDS ORDERED: LR 1,000 ML IV (13:15)
[2018-01-30] MEDS ORDERED: MEPERIDINE INJ 25 MG/ML VIAL (J2175) IV (13:15)
[2018-01-30] MEDS: PERCOCET 5MG/325MG TAB PO ×2 (13:49→14:39)
[2018-01-30] MEDS ORDERED: PERCOCET 5MG/325MG TAB As Ordered (14:25)
== END 2018-01-30 16:00 | disposition home or self-care (01) ==
LOC: M SDC 08:50
DX: Z30.2 Encounter for sterilization (principal); I10 Essential (primary) hypertension; E66.9 Obesity, unspecified; Z68.36 Body mass index [BMI] 36.0-36.9, adult; E28.2 Polycystic ovarian syndrome; K58.9 Irritable bowel syndrome, unspecified; M54.9 Dorsalgia, unspecified; G89.29 Other chronic pain; F32.9 Major depressive disorder, single episode, unspecified; Z88.2 Allergy status to sulfonamides; Z88.8 Allergy status to other drugs, medicaments and biological substances; Z79.899 Other long term (current) drug therapy
CPT/HCPCS: 58661

== ENCOUNTER → 2018-03-06 | Outpatient (REF) | payer OTHER | LOC: M SFHCLERA 15:35 | DX: J02.9 Acute pharyngitis, unspecified (principal) ==

== ENCOUNTER 2018-03-28 11:24 | Emergency (ER) | payer OTHER | END 2018-03-28 12:47 | disposition home or self-care (01) | LOC: M ED 11:24 | DX: S76.111A Strain of right quadriceps muscle, fascia and tendon, initial encounter (principal); S76.311A Strain of muscle, fascia and tendon of the posterior muscle group at thigh level, right thigh, initial encounter; X58.XXXA Exposure to other specified factors, initial encounter; Y92.59 Other trade areas as the place of occurrence of the external cause; Y99.0 Civilian activity done for income or pay; I10 Essential (primary) hypertension; E28.2 Polycystic ovarian syndrome; Z79.899 Other long term (current) drug therapy; Z87.891 Personal history of nicotine dependence; Z88.8 Allergy status to other drugs, medicaments and biological substances; Z88.1 Allergy status to other antibiotic agents; Z88.2 Allergy status to sulfonamides | CPT/HCPCS: 73502 ==

== ENCOUNTER 2018-06-23 08:28 | Emergency (ER) | payer OTHER ==
[2018-06-23] MEDS: KETOROLAC TROMETHAMINE 10 MG TAB PO (09:41)
[2018-06-23 09:44] LABS: KETONE, URINE AUTO RFX NEGATIVE (NEGATIVE); LEUKOCYTE ESTERASE UR AUTO RFX TRACE (NEGATIVE); MUCUS, URINE RFX SMALL (NEGATIVE); NITRITE, URINE AUTO RFX NEGATIVE (NEGATIVE); RBC, URINE AUTO RFX 2 /HPF (0-3); SPECIFIC GRAVITY UR AUTO RFX 1.021 (1.002-1.035); SQUAM EPITHELIAL CELL UR AURFX 1 /HPF (0-6); WBC, URINE AUTO RFX 0 /HPF (0-3)
[2018-06-23 11:24] LABS: CHLAMYDIA DNA AMPLIFICATION NEGATIVE (NEGATIVE); GC DNA AMPLIFICATION NEGATIVE (NEGATIVE)
== END 2018-06-23 10:13 | disposition home or self-care (01) ==
LOC: M ED 08:28
DX: T81.32XA Disruption of internal operation (surgical) wound, not elsewhere classified, initial encounter (principal); N94.10 Unspecified dyspareunia; X58.XXXA Exposure to other specified factors, initial encounter; Y92.89 Other specified places as the place of occurrence of the external cause; I10 Essential (primary) hypertension; E28.2 Polycystic ovarian syndrome; K58.9 Irritable bowel syndrome, unspecified; E03.9 Hypothyroidism, unspecified; F41.9 Anxiety disorder, unspecified; F33.9 Major depressive disorder, recurrent, unspecified; G43.909 Migraine, unspecified, not intractable, without status migrainosus; Z79.899 Other long term (current) drug therapy; Z88.2 Allergy status to sulfonamides; Z88.8 Allergy status to other drugs, medicaments and biological substances; F17.210 Nicotine dependence, cigarettes, uncomplicated
CPT/HCPCS: 81001

== ENCOUNTER 2018-07-22 11:52 | Emergency (ER) | payer OTHER | END 2018-07-22 15:24 | disposition home or self-care (01) | LOC: M ED 11:52 | DX: S29.002A Unspecified injury of muscle and tendon of back wall of thorax, initial encounter (principal); X50.0XXA Overexertion from strenuous movement or load, initial encounter; Y92.59 Other trade areas as the place of occurrence of the external cause; Y99.0 Civilian activity done for income or pay; I10 Essential (primary) hypertension; K58.9 Irritable bowel syndrome, unspecified; E28.2 Polycystic ovarian syndrome; G43.909 Migraine, unspecified, not intractable, without status migrainosus; Z79.899 Other long term (current) drug therapy; Z88.2 Allergy status to sulfonamides; Z88.8 Allergy status to other drugs, medicaments and biological substances; Z87.891 Personal history of nicotine dependence | CPT/HCPCS: 99283 ==

== ENCOUNTER 2018-07-25 15:06 | Emergency (ER) | payer OTHER | END 2018-07-25 17:18 | disposition left against medical advice (07) | LOC: M ED 15:06 | DX: M54.2 Cervicalgia (principal); Z53.21 Procedure and treatment not carried out due to patient leaving prior to being seen by health care provider ==

== ENCOUNTER → 2018-09-27 | Outpatient (REF) | payer OTHER | LOC: M SFHCLERA 12:57 | DX: R50.9 Fever, unspecified (principal) ==

== ENCOUNTER 2018-10-28 09:33 | Emergency (ER) | payer OTHER ==
[~2018-10-28] VITALS: Ht 157.5 cm; Wt 90.0 kg
[~2018-10-28 09:33] MED LIST changes: +ACET1TAB55 PO; -ACET50TA PO; +AMOX500C PO; +BACL10TA2; +CLON0.5T8 PO; +DICL75TA PO; +FISH1000; +HYDR12CA; +HYZA100T6 PO; +IBUP-1022 PO; +KETO10TAB; +KETO10TAB PO; +LIDO1PAD; +LORA-243; +LOSARTAN-HCTZ; +MAGICMW MT; +MAPA500T17 PO; +METF500T13; +NAPR-885; +NORA0.35; +NORCOTAB PO; +REGL10TA6; +REGL10TA6 PO; +ROBA500T PO; +SIMV40TA2 PO; +TRAZ25TA PO; +TYLE500T78 PO; +WELLTAB38 PO; -ZOFR20TA PO; +ZOFR4TAB16 PO
[2018-10-28] MEDS ORDERED: TIZA4CAP6 (09:40)
[2018-10-28] MEDS ORDERED: MELO15TA28 (09:40)
[2018-10-28] MEDS ORDERED: diazePAM 5 MG TAB PO ONE (10:15)
[2018-10-28] MEDS ORDERED: KETOROLAC 60 MG/2 ML VIAL (J1885) IM ONE (10:15)
[2018-10-28] MEDS ORDERED: DICL75TA PO (10:19)
[2018-10-28 10:33] VITALS: BP 116/70
== END 2018-10-28 10:41 | disposition home or self-care (01) ==
LOC: M ED 09:33
DX: S46.001A Unspecified injury of muscle(s) and tendon(s) of the rotator cuff of right shoulder, initial encounter (principal); S39.92XA Unspecified injury of lower back, initial encounter; G89.29 Other chronic pain; M54.5 Low back pain; X50.0XXA Overexertion from strenuous movement or load, initial encounter; Y92.9 Unspecified place or not applicable
CPT/HCPCS: 96372; 99284; J1885

== ENCOUNTER 2018-11-02 09:50 | Emergency (ER) | payer OTHER ==
[~2018-11-02] VITALS: Ht 157.5 cm; Wt 90.0 kg
[~2018-11-02 09:50] MED LIST changes: -MAPA500T17 PO; +MAPA500T2 PO; +MELO15TA28; +TIZA4CAP6
[2018-11-02 09:51] VITALS: BP 125/73
[2018-11-02] MEDS ORDERED: CYCL10TA PO (10:27)
[2018-11-02] MEDS ORDERED: PRED20TA PO (10:27)
[2018-11-02] MEDS ORDERED: KETOROLAC 60 MG/2 ML VIAL (J1885) IM ONE (10:30)
== END 2018-11-02 11:02 | disposition home or self-care (01) ==
LOC: M ED 09:50
DX: G89.29 Other chronic pain (principal); M54.9 Dorsalgia, unspecified; M54.2 Cervicalgia; M79.621 Pain in right upper arm; E03.9 Hypothyroidism, unspecified; G43.909 Migraine, unspecified, not intractable, without status migrainosus; E78.00 Pure hypercholesterolemia, unspecified; I10 Essential (primary) hypertension; K58.9 Irritable bowel syndrome, unspecified; E28.2 Polycystic ovarian syndrome; F41.9 Anxiety disorder, unspecified; F32.9 Major depressive disorder, single episode, unspecified; Z79.899 Other long term (current) drug therapy; Z88.2 Allergy status to sulfonamides; Z88.8 Allergy status to other drugs, medicaments and biological substances
CPT/HCPCS: 96372; 99283; J1885

== ENCOUNTER 2018-12-31 14:14 | Emergency (ER) | payer OTHER ==
[~2018-12-31] VITALS: Ht 157.5 cm; Wt 90.0 kg
[~2018-12-31 14:14] MED LIST changes: +CYCL10TA PO; +PRED20TA PO
[2018-12-31] MEDS ORDERED: PREG50CA PO (14:31)
[2018-12-31] MEDS ORDERED: TRAZ-163 PO (14:31)
[2018-12-31] MEDS ORDERED: CELE1CAP9 PO (14:31)
[2018-12-31] MEDS ORDERED: [UNRECOGNIZED DRUG - CODE] PO (14:31)
[2018-12-31] MEDS ORDERED: SIMV20TA2 PO (14:31)
[2018-12-31] MEDS ORDERED: CETI10TA PO (14:31)
--- NOTE | 2018-12-31 15:49 | REP ---
Clinical: Acute chest pain . Comparison: None . Technique: PA and lateral. Findings: The mediastinum and cardiac silhouette are normal. The lung booth are clear and without acute consolidation, effusion, or pneumothorax. The skeletal structures are intact and normal. Impression: 1. No acute cardiopulmonary process. Electronically Signed by Nikhil Spann MD 12/31/2018 03:41 P
[2018-12-31] MEDS ORDERED: KETOROLAC 30 MG/ML VIAL (J1885) IV ONE (16:00)
[2018-12-31] MEDS ORDERED: KETOROLAC 60 MG/2 ML VIAL (J1885) IM ONE (16:30)
[2018-12-31 16:39] LABS: BASO # 0.1 10^3/uL (0.0-0.2); BASO % 0.8 % (0.0-1.0); EOS # 0.1 10^3/uL (0.0-0.50); EOS % 1.8 % (0.0-3.0); HEMATOCRIT 39.4 % (36.0-47.0); LYMPH # 2.8 10^3/uL (1.5-4.5); LYMPH % 38.4 % (24.0-44.0); MEAN CORPUSCULAR HEMOGLOBIN 27.8 pg (27.0-33.0); MEAN CORPUSCULAR VOLUME 84.4 fl (80.0-96.0); MONO # 0.4 10^3/uL (0.0-0.8); NEUTROPHILS # 3.8 10^3/uL (1.8-7.7); NEUTROPHILS % 52.9 % (36.0-66.0); PLATELET COUNT, AUTOMATED 382 10^3/uL (150-450); RED BLOOD COUNT 4.67 10^6/uL (4.00-5.40); WHITE BLOOD COUNT 7.2 10^3/uL (4.0-10.0)
[2018-12-31 17:36] VITALS: BP 125/74
[2018-12-31] MEDS ORDERED: KETOROLAC 30 MG/ML VIAL (J1885) IM ONE (18:15)
--- NOTE | 2019-01-01 20:35 | ECGEPIP ---
Stationary ECG Study [facility] - ED Test Date: 2018-12-31 Pat Name: ANISHA AVILA Department: Room: - Gender: F Tetryl Wringer Operator: GEREMIAS : 1990 Requested By: Mary Chen Order Number: [id number] Reading MD: Mary Chen Measurements Intervals [place] Rate: 72 P: 52 IL: 169 QRS: 14 QRSD: 112 T: 9 QT: 390 QTc: 429 Interpretive Statements SINUS RHYTHM MODERATE INTRAVENTRICULAR CONDUCTION DELAY MODERATE T-WAVE ABNORMALITY, CONSIDER ANTERIOR ISCHEMIA SIMILAR 12/28/15 Electronically Signed On 01-01-2019 20:35:14 EST by Mary Chen
== END 2018-12-31 18:46 | disposition home or self-care (01) ==
LOC: M ED 14:14
DX: R07.9 Chest pain, unspecified (principal); M79.601 Pain in right arm; I10 Essential (primary) hypertension; K58.9 Irritable bowel syndrome, unspecified; E28.2 Polycystic ovarian syndrome; F17.200 Nicotine dependence, unspecified, uncomplicated; Z88.2 Allergy status to sulfonamides; Z88.8 Allergy status to other drugs, medicaments and biological substances; Z79.899 Other long term (current) drug therapy
CPT/HCPCS: 36415; 71046; 85025; 85379; 93005; 96372; 99284; J1885

== ENCOUNTER 2019-02-13 15:20 | Emergency (ER) | payer OTHER ==
[~2019-02-13] VITALS: Ht 157.5 cm; Wt 84.1 kg
[~2019-02-13 15:20] MED LIST changes: +CELE1CAP9 PO; +CETI10TA PO; +HYDR-3715 PO; -NORCOTAB PO; +PREG50CA PO; +SIMV20TA2 PO; +TRAZ-163 PO; +[UNRECOGNIZED DRUG - CODE] PO
[2019-02-13] MEDS ORDERED: OXYMETAZOLINE NASAL SPRAY (AFRIN) ONE (16:30)
[2019-02-13 16:44] LABS: INFLUENZA A AMPLIFICATION NEGATIVE (NEGATIVE); INFLUENZA B AMPLIFICATION NEGATIVE (NEGATIVE)
[2019-02-13 17:58] VITALS: BP 147/91
[2019-02-13] MEDS ORDERED: CLAR10CA3 PO (18:06)
[2019-02-13] MEDS ORDERED: FLON1SPR NARES (18:06)
[2019-02-13] MEDS ORDERED: IBUPROFEN 600 MG TAB PO ONE (18:15)
== END 2019-02-13 18:17 | disposition home or self-care (01) ==
LOC: M ED 15:20
DX: J30.9 Allergic rhinitis, unspecified (principal); K58.9 Irritable bowel syndrome, unspecified; F32.9 Major depressive disorder, single episode, unspecified; E28.2 Polycystic ovarian syndrome; Z88.2 Allergy status to sulfonamides; Z88.8 Allergy status to other drugs, medicaments and biological substances; Z79.899 Other long term (current) drug therapy; F17.210 Nicotine dependence, cigarettes, uncomplicated